=== PATIENT | male | born 1980 | race African-American/Black ===

== ENCOUNTER 2016-05-02 17:18 | Emergency (ER) | payer OTHER ==
[2016-05-02 17:22] VITALS: BMI 21.7
[2016-05-02] MEDS ORDERED: SODIUM CHLORIDE 1,000 ML IV STA (17:50)
--- NOTE | 2016-05-02 17:50 | PDOC ---
History of Present Illness - General History Source: Patient, Old Records Exam Limitations: No Limitations <Abby Johnson - Last Filed: 05/02/16 18:26> - History of Present Illness Initial Comments: 05/02/16 17:50 Patient is a 35 year old male with significant medical hx of MS and sickle cell anemia s/p blood transfusions x 2 who is presenting to the ED with intermittent lower back pain and lower extremity pain for two days. The patient describes his pain as sharp and stabbing. His pain is localized to his thighs and radiates downwards to his feet. Patient is prescribed to take oxycodone (30mg) 8x per day, however, the patient states he does not have access to his medication at this time because he is here visiting his children and left it home in [place]. The patient has taken a few doses over the past few days with minimal relief. The patient also complains of generalized abdominal pain and chills. Denies fever, chest pain, shortness of breath, nausea, vomiting, and diarrhea. 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 NKDA. <Maylin Holloway - Last Filed: 05/02/16 18:28> <Tamera Gerber - Last Filed: 05/03/16 03:57> - General Chief Complaint: Weakness Stated Complaint: WEAKNESS Time Seen by Provider: 05/02/16 17:32 Past History - Past Medical History Anemia: Yes (SICKLE CELL ANEMIA) Other medical history: MS - Immunization History Immunization Up to Date: Yes - Psycho/Social/Smoking Cessation Hx Anxiety: No Suicidal Ideation: No Smoking History: Current every day smoker Have you smoked in the past 12 months: Yes Number of Cigarettes Smoked Daily: 4 Cigars Per Day: 3 Information on smoking cessation initiated: Yes 'Breaking Loose' booklet given: 05/02/16 Hx Alcohol Use: Yes (occasional) Drug/Substance Use Hx: Yes (marijuana) Substance Use Type: Alcohol Hx Substance Use Treatment: No <Abby Johnson - Last Filed: 05/02/16 18:26> <Maylin Holloway - Last Filed: 05/02/16 18:28> <Tamera Gerber - Last Filed: 05/03/16 03:57> - Past Medical History Allergies/Adverse Reactions: Allergies Allergy/AdvReac Type Severity Reaction Status Date / Time No Known Allergies Allergy Verified 03/19/16 21:14 Home Medications: Ambulatory Orders Hydromorphone HCl [Dilaudid] 2 mg PO TID PRN 05/02/16 Oxycodone HCl [Oxycodone HCl ER] 30 mg PO Q8H PRN 05/02/16 Review of Systems - Review of Systems Comments:: 05/02/16 17:52 GENERAL/CONSTITUTIONAL: Chills. No fever. No weakness. HEAD, EYES, EARS, NOSE AND THROAT: No change in vision. No ear pain or discharge. No sore throat. CARDIOVASCULAR: No chest pain or shortness of breath. RESPIRATORY: No cough, wheezing, or hemoptysis. GASTROINTESTINAL: Generalized abdominal pain. No nausea, vomiting, diarrhea or constipation. GENITOURINARY: No dysuria, frequency, or change in urination. MUSCULOSKELETAL: Lower back pain, lower extremity pain. No joint or muscle swelling. No neck pain. SKIN: No rash NEUROLOGIC: No headache, vertigo, loss of consciousness, or change in strength/ sensation. <Maylin Holloway - Last Filed: 05/02/16 18:28> *Physical Exam - Vital Signs Last Vital Signs Temp Pulse Resp BP Pulse Ox 98 F 92 H 18 130/69 97 05/02/16 17:20 05/02/16 17:20 05/02/16 17:20 05/02/16 17:20 05/02/16 17:20 <Abby Johnson - Last Filed: 05/02/16 18:26> - Vital Signs Last Vital Signs Temp Pulse Resp BP Pulse Ox 98 F 92 H 18 130/69 97 05/02/16 17:20 05/02/16 17:20 05/02/16 17:20 05/02/16 17:20 05/02/16 17:20 - Physical Exam Comments: 05/02/16 17:53 GENERAL: Awake, alert, and fully oriented, in no acute distress HEAD: No signs of trauma EYES: PERRLA, EOMI, sclera anicteric, conjunctiva clear ENT: Auricles normal inspection, hearing grossly normal, nares patent, oropharynx clear without exudates. Moist mucosa NECK: Normal ROM, supple, no lymphadenopathy, JVD, or masses LUNGS: Breath sounds equal, clear to auscultation bilaterally. No wheezes, and no crackles HEART: Regular rate and rhythm, normal S1 and S2, no murmurs, rubs or gallops ABDOMEN: Soft, nontender, normoactive bowel sounds. No guarding, no rebound. No masses EXTREMITIES: Normal range of motion, no edema. No clubbing or cyanosis. No cords, erythema, or tenderness NEUROLOGICAL: Cranial nerves II through XII grossly intact. Normal speech, normal gait SKIN: Warm, Dry, normal turgor, no rashes or lesions noted. ENDOCRINE: No abnormal weight change. HEMATOLOGIC/LYMPHATIC: No anemia, easy bleeding, or history of blood clots. ALLERGIC/IMMUNOLOGIC: No hives or skin allergy. <Maylin Holloway - Last Filed: 05/02/16 18:28> - Vital Signs Last Vital Signs Temp Pulse Resp BP Pulse Ox 98 F 92 H 18 130/69 97 05/02/16 17:20 05/02/16 17:20 05/02/16 17:20 05/02/16 17:20 05/02/16 17:20 <Tamera Gerber - Last Filed: 05/03/16 03:57> ED Treatment Course - LABORATORY CBC & Chemistry Diagram: 05/02/16 18:20 05/02/16 18:20 - ADDITIONAL ORDERS Additional order review: Laboratory Results 05/02/16 05/02/16 19:00 18:20 Sodium 141 Potassium 3.9 Chloride 107 Carbon Dioxide 27 Anion Gap 7 L BUN 11 Creatinine 0.7 D Creat Clearance w eGFR > 60 Random Glucose 86 Calcium 9.1 Total Bilirubin 1.2 H D AST 56 H D ALT 51 D Alkaline Phosphatase 115 Total Protein 6.8 Albumin 3.7 Urine Color Yellow Urine Appearance Clear Urine pH 7.0 D Ur Specific [place] 1.013 Urine Protein Negative Urine Glucose (UA) Negative Urine Ketones Negative Urine Blood Negative Urine Nitrite Negative Urine Bilirubin Negative Urine Urobilinogen 2.0 e.u/dl Ur Leukocyte Esterase Negative 05/02/16 18:20 RBC 4.12 MCV 65.3 L MCHC 33.9 RDW 19.6 H D MPV 9.4 D Neutrophils % 71.5 Lymphocytes % 13.9 D Monocytes % 12.6 H D Eosinophils % 1.3 D Basophils % 0.7 - Medications Given in the ED: ED Medications Discontinued Medications Generic Name Dose Route Start Last Admin Trade Name Weslyq PRN Reason Stop Dose Admin Sodium Chloride 1,000 mls @ 1,000 mls/hr 05/02/16 17:50 05/02/16 18:25 Normal Saline - IV 05/02/16 18:49 1,000 mls/hr ASDIR STA Administration Oxycodone HCl 30 mg 05/02/16 17:51 05/02/16 18:26 Roxicodone - PO 05/02/16 17:52 30 mg ONCE ONE Administration <Tamera Gerber - Last Filed: 05/03/16 03:57> Medical Decision Making - Medical Decision Making 05/02/16 18:26 35-year-old male with history of sickle cell disease and multiple sclerosis who presents to the emergency Department with complaints of 2 day history of bilateral thigh pain similar to prior episodes of sickle cell pain crisis. Differential diagnosis includes but is not limited to: Sickle cell pain crisis, dehydration, anemia, electrolyte abnormality, toxic/metabolic derangement. Plan: 1. Labs 2. IV fluids for hydration 3. Pain management 4. Observe and reevaluate <Abby Johnson - Last Filed: 05/02/16 18:26> - Medical Decision Making 05/03/16 03:57 I received patient on signout. He required no further pain meds. He will follow with his PMD. <Tamera Gerber - Last Filed: 05/03/16 03:57> *DC/Admit/Observation/Transfer - Attestations Physician Attestion: 05/02/16 18:28 I, Dr. Abby Johnson, attest that the scribes documentation that appears above has been prepared under my direction and personally reviewed by me in its entirety. I confirmed that the note above accurately reflects all work, treatment, procedures, and medical decision-making performed by me. <Abby Johnson - Last Filed: 05/02/16 18:26> - Attestations Scribe Attestion: 05/02/16 17:54 Documentation prepared by Maylin Holloway, acting as medical lab assistant for Abby Johnson MD. <Maylin Holloway - Last Filed: 05/02/16 18:28> - Discharge Dispostion Admit: No <Tamera Gerber - Last Filed: 05/03/16 03:57> Diagnosis at time of Disposition: Sickle cell crisis - Discharge Dispostion Disposition: HOME Condition at time of disposition: Improved - Patient Instructions Printed Discharge Instructions: Sickle Cell Disease (Alternative Therapy), DI for Sickle Cell Anemia, Pain Crisis -- Adult
[2016-05-02] MEDS ORDERED: oxyCODONE HCL 5 MG TABLET PO ONE (17:51)
[2016-05-02] MEDS ORDERED: oxyCODONE HCL 5 MG TABLET ONE (18:21)
[2016-05-02 18:48] LABS: BASOPHIL 0.7 % (0-2.0); EOSINOPHIL 1.3 % (0-4.5); MCH 22.1 pg (25.7-33.7); MCHC 33.9 g/dl (32.0-35.9); MEAN CELL VOLUME 65.3 fl (80-96); MEAN PLT VOLUME 9.4 fl (7.5-11.1); NEUTROPHILS 71.5 % (42.8-82.8); PLATELET COUNT 264 K/MM3 (134-434); RDW 19.6 % (11.9-15.9); WHITE BLOOD COUNT 11.3 K/mm3 (4.0-10.0)
[2016-05-02 19:00] LABS: ALBUMIN 3.7 g/dl (3.4-5.0); ALK PHOS 115 U/L (45-117); ANION GAP 7 (8-16); BILIRUBIN,TOTAL 1.2 mg/dL (0.2-1.0); CALCIUM 9.1 mg/dL (8.5-10.1); CO2 27 mmol/L (21-32); CREATININE 0.7 mg/dL (0.7-1.3); GLUCOSE,RANDOM 86 mg/dL (74-106); SGOT/AST 56 U/L (15-37); SGPT/ALT 51 U/L (12-78); TOT PROT 6.8 g/dl (6.4-8.2)
[2016-05-02 19:17] LABS: URINE APPEARANCE CLEAR; URINE BILIRUBIN NEGATIVE (NEGATIVE); URINE BLOOD NEGATIVE (NEGATIVE); URINE COLOR YELLOW; URINE GLUCOSE (UA) NEGATIVE (NEGATIVE); URINE KETONE NEGATIVE (NEGATIVE); URINE LEUK ESTERASE NEGATIVE (NEGATIVE); URINE NITRITE NEGATIVE (NEGATIVE); URINE PROTEIN NEGATIVE (NEGATIVE); URINE UROBILINOGEN 2.0 E.U/dl E.U./dl (0.2-1.0)
[2016-05-02 19:47] LABS: PLATELET ESTIMATE ADEQUATE (NORMAL)
[2016-05-02 19:48] LABS: ANISOCYTOSIS 1+; HYPOCHROMIA 1+; MICROCYTOSIS 1+; POIKILOCYTOSIS 2+; POLYCHROMASIA 1+
[2016-05-02 19:49] LABS: OVALOCYTES 1+; TARGET CELLS 2+
[2016-05-02 21:37] VITALS: BP 132/78; PULSE 88; TEMP 98.3
== END 2016-05-02 21:26 | disposition home or self-care (01) ==
LOC: JER 17:18
PROC: 3E0337Z Introduction of Electrolytic and Water Balance Substance into Peripheral Vein, Percutaneous Approach (ICD-10-PCS; principal; 2016-05-02)
DX: D57.00 Hb-SS disease with crisis, unspecified (principal); R53.1 Weakness; F17.210 Nicotine dependence, cigarettes, uncomplicated
CPT/HCPCS: 36415; 71010-TC; 80053; 81003; 85025; 85044; 96360; 99284-25

== ENCOUNTER 2017-01-18 15:32 | Emergency (ER) | payer OTHER ==
[2017-01-18 15:41] VITALS: BP 117/73; PULSE 101; TEMP 98.9; BMI 21.4
--- NOTE | 2017-01-18 17:35 | PDOC ---
History of Present Illness - General History Source: Patient Exam Limitations: No Limitations - History of Present Illness Initial Comments: 01/18/17 18:06 The patient is a 36 year old male with a significant PMH of multiple sclerosis and sickle cell anemia who presents to the emergency department with flu-like symptoms beginning approximately 2 days ago. The patient states that he has been feeling weak and fatigued with sneezing and congestion. He notes associated cough and sore throat. The patient also reports a mass in his right armpit that he has had for years which he is concerned about. The patient denies chest pain, shortness of breath, headache and dizziness. Denies nausea, vomit, diarrhea and constipation. Allergies: NKA Social history: Everyday smoker. No reported alcohol or drug use. <Levar Villalba - Last Filed: 01/18/17 20:00> - General History Source: Patient Exam Limitations: No Limitations - History of Present Illness Severity: moderate Associated Symptoms: reports: fever/chills, weakness. denies: headaches, loss of appetite, malaise, nausea/vomiting, rash, shortness of breath, syncope <Claudia Lynn - Last Filed: 01/18/17 23:39> - General Chief Complaint: Respiratory Stated Complaint: COLD, ABSCESS IN RT AXILLA Time Seen by Provider: 01/18/17 17:06 Past History <Levar Villalba - Last Filed: 01/18/17 20:00> - Past Medical History Anemia: Yes (SICKLE CELL ANEMIA) Other medical history: MS - Immunization History Immunization Up to Date: Yes - Suicide/Smoking/Psychosocial Hx Smoking History: Current every day smoker Have you smoked in the past 12 months: Yes Number of Cigarettes Smoked Daily: 4 Cigars Per Day: 3 Information on smoking cessation initiated: No 'Breaking Loose' booklet given: 05/02/16 Hx Alcohol Use: No Drug/Substance Use Hx: No Substance Use Type: None Hx Substance Use Treatment: No <Claudia Lynn - Last Filed: 01/18/17 23:39> - Past Medical History Allergies/Adverse Reactions: Allergies Allergy/AdvReac Type Severity Reaction Status Date / Time No Known Allergies Allergy Verified 01/18/17 15:42 Home Medications: Ambulatory Orders Hydromorphone HCl [Dilaudid] 2 mg PO TID PRN 05/02/16 Oxycodone HCl [Oxycodone HCl ER] 30 mg PO Q8H PRN 05/02/16 Review of Systems - Review of Systems Able to Perform ROS?: Yes Comments:: 01/18/17 18:06 GENERAL/CONSTITUTIONAL: (+) Subjective fever. (+) Generalized weakness. No chills. HEAD, EYES, EARS, NOSE AND THROAT: (+) Sore throat. No change in vision. No ear pain or discharge. CARDIOVASCULAR: No chest pain or shortness of breath. RESPIRATORY: (+) Cough. No wheezing or hemoptysis. GASTROINTESTINAL: No nausea, vomiting, diarrhea or constipation. MUSCULOSKELETAL: No joint or muscle swelling or pain. No neck or back pain. NEUROLOGIC: No headache, vertigo, loss of consciousness. <Levar Villalba - Last Filed: 01/18/17 20:00> *Physical Exam - Vital Signs Last Vital Signs Temp Pulse Resp BP Pulse Ox 98.9 F 101 H 18 117/73 95 01/18/17 15:38 01/18/17 15:38 01/18/17 15:38 01/18/17 15:38 01/18/17 15:38 - Physical Exam Comments: 01/18/17 18:06 GENERAL: Awake, alert, and fully oriented, in no acute distress EYES: PERRLA, EOMI, sclera anicteric, conjunctiva clear ENT: Auricles normal inspection, hearing grossly normal, nares patent, oropharynx clear without exudates. Moist mucosa LUNGS: Breath sounds equal, clear to auscultation bilaterally. No wheezes, and no crackles HEART: Regular rate and rhythm, normal S1 and S2, no murmurs, rubs or gallops ABDOMEN: Soft, nontender, normoactive bowel sounds. No guarding, no rebound. No masses EXTREMITIES: (+) 2 cm palpable mobile mass to right axilla. No palpable lymph node. No surrounding erythema, edema, or fluctuants. Area is hard, small opening to middle with no drainage. Consistent with opened hair follicle, no evidence of cellulitis. Normal range of motion, no edema. No clubbing or cyanosis. No cords or tenderness NEUROLOGICAL: Cranial nerves II through XII grossly intact. Normal speech. <Levar Villalba - Last Filed: 01/18/17 20:00> - Vital Signs Last Vital Signs Temp Pulse Resp BP Pulse Ox 98.9 F 101 H 18 117/73 95 01/18/17 15:38 01/18/17 15:38 01/18/17 15:38 01/18/17 15:38 01/18/17 15:38 <Claudia Lynn - Last Filed: 01/18/17 23:39> Medical Decision Making - Medical Decision Making 01/18/17 18:29 A/P: Patient here for evaluation of cough and cold-like symptoms, states he thinks he has the flu son with similar symptoms patient also requesting evaluation of palpable mobile nonpainful mass to right axilla, patient states he has had for several years. Concerned because there is mild tenderness to area. Patient denies any increased weakness consistent with MS exacerbation and denies any pain consistent with sickle cell crisis A portion of this note was documented by the scribe services under my direction. I reviewed the details of the note within reason, and agree with the documentation with the following case summary and management plan written by me. Plan: Rapid influenza sent 01/18/17 19:50 Rapid influenza is negative, since physical examination is benign does not complain of any pain. We'll discharge patient home, supportive care, increase fluids. If symptoms persist tomorrow follow-up with primary care doctor I discussed the physical exam findings, ancillary test results and final diagnoses with the patient. I answered all of the patient's questions. The patient was satisfied with the care received and felt comfortable with the discharge plan and treatment plan. The patient will call to arrange follow-up and will return to the Emergency Department with any new, persistent or worsening symptoms. 01/18/17 23:39 <Claudia Lynn - Last Filed: 01/18/17 23:39> *DC/Admit/Observation/Transfer - Attestations Scribe Attestion: 01/18/17 18:06 Documentation prepared by Levar Villalba, acting as resident medical officer for Claudia Lynn FNP. <Levar Villalba - Last Filed: 01/18/17 20:00> - Discharge Dispostion Admit: No <Claudia Lynn - Last Filed: 01/18/17 23:39> Diagnosis at time of Disposition: Flu-like symptoms - Discharge Dispostion Disposition: HOME Condition at time of disposition: Good - Referrals Referrals: Renetta Laureano MD [Primary Care Provider] - - Patient Instructions Additional Instructions: Increase fluids to prevent dehydration Motrin for fever greater than 101.0 Please followup with primary care DrCarloz in 3 days if symptoms persist Return to emergency department any increased cough, fever, inability to drink or other concerns
== END 2017-01-18 19:58 | disposition home or self-care (01) ==
LOC: JERFT 15:32
DX: J11.1 Influenza due to unidentified influenza virus with other respiratory manifestations (principal); L02.411 Cutaneous abscess of right axilla; D57.1 Sickle-cell disease without crisis; G35 Multiple sclerosis; F17.210 Nicotine dependence, cigarettes, uncomplicated
CPT/HCPCS: 87804; 99281-25

== ENCOUNTER 2021-02-19 00:41 | Inpatient (IN) | payer OTHER ==
[2021-02-19 00:51] VITALS: BMI 21.4
[2021-02-19] MEDS ORDERED: HYDROmorphone HCL CARPU-JECT 2 MG/1 ML DISP.SYRIN IVPB ONE ×2 (01:15→01:18)
[2021-02-19] MEDS ORDERED: LACTATED RINGERS SOLUTION 1,000 ML/1,000 ML INFUS.BAG IV STA (01:16)
[2021-02-19] MEDS ORDERED: HYDROmorphone HCl 2 MG/ML VIAL ONE ×3 (01:20→06:15)
[2021-02-19 01:41] LABS: BASO % 1.1 % (0-2.0); EOS % 3.3 % (0-4.5); HEMATOCRIT 25.5 % (35.4-49); HEMOGLOBIN 8.7 GM/dL (11.7-16.9); LYMPH % 25.8 % (8-40); MCH 23.2 pg (25.7-33.7); MEAN CELL VOLUME 68.2 fl (80-96); MEAN PLT VOLUME 8.9 fl (7.5-11.1); MONO % 10.5 % (3.8-10.2); NEUT % 59.3 % (42.8-82.8); PLATELET COUNT 287 10^3/uL (134-434); RBC 3.74 M/mm3 (4.00-5.60); RDW 17.7 % (11.9-15.9); WHITE BLOOD COUNT 10.6 K/mm3 (4.0-10.0)
[2021-02-19 01:46] LABS: RETICULOCYTES 4.48 % (0.5-1.5)
[2021-02-19] MEDS ORDERED: HYDROmorphone HCL CARPU-JECT 2 MG/1 ML DISP.SYRIN IVPUSH ONE (02:27)
[2021-02-19 03:00] LABS: ALBUMIN 3.6 g/dl (3.4-5.0); BILIRUBIN,TOTAL 1.1 mg/dL (0.2-1); BLOOD UREA NITROGEN 10.7 mg/dL (7-18); CALCIUM 8.3 mg/dL (8.5-10.1); CREATININE 0.9 mg/dL (0.55-1.3); TOT PROT 6.7 g/dl (6.4-8.2)
[2021-02-19] MEDS: SODIUM CHLORIDE 0.45% 1,000 ML IV SCH ×2 (06:29→17:41)
[2021-02-19] MEDS: HYDROmorphone HCl 2 MG/ML VIAL IVPUSH PRN ×2 (06:29→10:27)
[2021-02-19] MEDS: MAGNESIUM OXIDE 400 MG TABLET (FP) PO SCH (10:58)
[2021-02-19 12:08] LABS: LDH 395 U/L (87-246)
[2021-02-19 12:22] LABS: BASO % 0.9 % (0-2.0); HEMATOCRIT 25.7 % (35.4-49); HEMOGLOBIN 8.5 GM/dL (11.7-16.9); LYMPH % 20.4 % (8-40); MCH 22.8 pg (25.7-33.7); MCHC 33.2 g/dl (32.0-35.9); MEAN CELL VOLUME 68.5 fl (80-96); MEAN PLT VOLUME 8.9 fl (7.5-11.1); MONO % 9.8 % (3.8-10.2); NEUT % 65.9 % (42.8-82.8); PLATELET COUNT 294 10^3/uL (134-434); RBC 3.74 M/mm3 (4.00-5.60); RDW 18.2 % (11.9-15.9); WHITE BLOOD COUNT 11.5 K/mm3 (4.0-10.0)
[2021-02-19] MEDS ORDERED: OXYCODONE HCL 5 MG PO PRN (13:16)
[2021-02-19] MEDS ORDERED: PT OWN MED DRAWER 7, Y5N ONE ×2 (15:37→21:53)
[2021-02-19] MEDS: HYDROmorphone HCl 2 MG/ML VIAL IVPB PRN ×2 (15:40→22:54)
[2021-02-19] MEDS: CHOLECALCIFEROL (VIT D3) 5000 UNITS (125 MCG) CAP PO SCH (15:41)
[2021-02-19] MEDS: FOLIC ACID 1 MG TABLET (FP) PO SCH (15:43)
[2021-02-19] MEDS: oxyCODONE HCL 5 MG TABLET PO PRN (17:36)
[2021-02-19] MEDS ORDERED: AMITRIPTYLINE HCL 50 MG TABLET PO SCH (22:00)
[2021-02-19] MEDS: AMITRIPTYLINE HCL 25 MG TABLET PO SCH (22:19)
[2021-02-20] MEDS: oxyCODONE HCL 5 MG TABLET PO PRN ×4 (02:08→20:33)
[2021-02-20] MEDS: HYDROmorphone HCl 2 MG/ML VIAL IVPB PRN ×4 (03:25→22:12)
[2021-02-20] MEDS: SODIUM CHLORIDE 0.45% 1,000 ML IV SCH ×3 (08:16→20:36)
[2021-02-20 08:49] LABS: BASO % 0.7 % (0-2.0); EOS % 1.6 % (0-4.5); HEMATOCRIT 27.4 % (35.4-49); HEMOGLOBIN 9.3 GM/dL (11.7-16.9); LYMPH % 9.7 % (8-40); MCH 23.1 pg (25.7-33.7); MCHC 33.9 g/dl (32.0-35.9); MEAN CELL VOLUME 68.1 fl (80-96); MEAN PLT VOLUME 8.3 fl (7.5-11.1); MONO % 11.5 % (3.8-10.2); NEUT % 76.5 % (42.8-82.8); PLATELET COUNT 272 10^3/uL (134-434); RBC 4.03 M/mm3 (4.00-5.60); RDW 17.9 % (11.9-15.9)
[2021-02-20 08:51] LABS: INR 1.28 (0.83-1.09); PROTHROMBIN TIME (PATIENT) 14.4 SEC (9.7-13.0)
[2021-02-20] MEDS: NICOTINE 14 MG/24 HOURS TOPICAL PATCH TD SCH (09:42)
[2021-02-20] MEDS: ENOXAPARIN NA (PORCINE) 40 MG/0.4 ML DISP.SYRIN SQ SCH (09:42)
[2021-02-20] MEDS: FOLIC ACID 1 MG TABLET (FP) PO SCH (09:42)
[2021-02-20] MEDS: CHOLECALCIFEROL (VIT D3) 5000 UNITS (125 MCG) CAP PO SCH (09:42)
[2021-02-20] MEDS: MAGNESIUM OXIDE 400 MG TABLET (FP) PO SCH (09:42)
[2021-02-20] MEDS ORDERED: DIMETHYL FUMARATE PO SCH (10:00)
[2021-02-20 10:03] LABS: ALBUMIN 3.8 g/dl (3.4-5.0); BILIRUBIN,TOTAL 1.6 mg/dL (0.2-1); BLOOD UREA NITROGEN 8.4 mg/dL (7-18); CALCIUM 8.6 mg/dL (8.5-10.1); CREATININE 0.8 mg/dL (0.55-1.3)
[2021-02-20 15:32] LABS: EPI CELLS 3 /uL (0-25.1); HYALINE CASTS 0 /uL (0-3.1); URINE APPEARANCE CLEAR; URINE BACTERIA 8 /uL (0-1359); URINE BILIRUBIN NEGATIVE (NEGATIVE); URINE COLOR YELLOW; URINE GLUCOSE (UA) NEGATIVE (NEGATIVE); URINE KETONE NEGATIVE (NEGATIVE); URINE LEUK ESTERASE TRACE (NEGATIVE); URINE NITRITE NEGATIVE (NEGATIVE); URINE PROTEIN NEGATIVE (NEGATIVE); URINE RBC 1 /uL (0-23.9); URINE UROBILINOGEN 0.2 mg/dL (0.2-1.0); URINE WBC 26 /uL (0-25.8)
[2021-02-20] MEDS ORDERED: AMITRIPTYLINE HCL 25 MG TABLET PO SCH (22:00)
[2021-02-20] MEDS: AMITRIPTYLINE HCL 25 MG TABLET PO SCH (22:17)
[2021-02-21] MEDS: oxyCODONE HCL 5 MG TABLET PO PRN ×3 (02:41→17:30)
[2021-02-21] MEDS: HYDROmorphone HCl 2 MG/ML VIAL IVPB PRN ×4 (05:30→23:08)
[2021-02-21] MEDS: SODIUM CHLORIDE 0.45% 1,000 ML IV SCH ×2 (05:33→17:31)
[2021-02-21 08:26] LABS: BASO % 0.8 % (0-2.0); HEMATOCRIT 26.9 % (35.4-49); HEMOGLOBIN 9.1 GM/dL (11.7-16.9); LYMPH % 9.8 % (8-40); MCH 22.8 pg (25.7-33.7); MCHC 33.8 g/dl (32.0-35.9); MEAN CELL VOLUME 67.6 fl (80-96); MONO % 10.3 % (3.8-10.2); NEUT % 78.1 % (42.8-82.8); PLATELET COUNT 249 10^3/uL (134-434); RBC 3.98 M/mm3 (4.00-5.60); WHITE BLOOD COUNT 13.8 K/mm3 (4.0-10.0)
[2021-02-21] MEDS ORDERED: PT OWN MED DRAWER 7, Y5N ONE ×2 (09:06→16:04)
[2021-02-21] MEDS: ENOXAPARIN NA (PORCINE) 40 MG/0.4 ML DISP.SYRIN SQ SCH (09:08)
[2021-02-21] MEDS: NICOTINE 14 MG/24 HOURS TOPICAL PATCH TD SCH (09:08)
[2021-02-21] MEDS: MAGNESIUM OXIDE 400 MG TABLET (FP) PO SCH (09:08)
[2021-02-21] MEDS: CHOLECALCIFEROL (VIT D3) 5000 UNITS (125 MCG) CAP PO SCH (09:08)
[2021-02-21] MEDS: FOLIC ACID 1 MG TABLET (FP) PO SCH (09:08)
[2021-02-21 09:55] LABS: ALBUMIN 3.8 g/dl (3.4-5.0); BILIRUBIN,TOTAL 1.9 mg/dL (0.2-1); CALCIUM 8.9 mg/dL (8.5-10.1); CREATININE 0.8 mg/dL (0.55-1.3); TOT PROT 7.3 g/dl (6.4-8.2)
[2021-02-21] MEDS ORDERED: CEFTRIAXONE 1 GM in DEXTROSE 5%-WATER - 50 ML IVPB SCH (10:15)
[2021-02-21] MEDS ORDERED: DEXTROSE 5%-WATER - 50 ML IVPB ONE (12:13)
[2021-02-21] MEDS ORDERED: cefTRIAXone SODIUM 1 GM VIAL ONE (12:13)
[2021-02-21 15:02] LABS: RETICULOCYTES 2.71 % (0.5-1.5)
[2021-02-21 15:52] LABS: MAGNESIUM 2.1 mg/dL (1.8-2.4); PHOSPHOROUS 3.4 mg/dL (2.5-4.9)
[2021-02-21] MEDS: AMITRIPTYLINE HCL 25 MG TABLET PO SCH (22:10)
[2021-02-22] MEDS: oxyCODONE HCL 5 MG TABLET PO PRN ×3 (00:30→20:48)
[2021-02-22 08:20] LABS: BASO % 0.8 % (0-2.0); EOS % 2.1 % (0-4.5); HEMATOCRIT 26.6 % (35.4-49); HEMOGLOBIN 8.9 GM/dL (11.7-16.9); MCH 22.7 pg (25.7-33.7); MCHC 33.6 g/dl (32.0-35.9); MEAN CELL VOLUME 67.4 fl (80-96); MEAN PLT VOLUME 8.9 fl (7.5-11.1); MONO % 11.9 % (3.8-10.2); NEUT % 70.2 % (42.8-82.8); PLATELET COUNT 245 10^3/uL (134-434); RBC 3.95 M/mm3 (4.00-5.60); RDW 18.1 % (11.9-15.9)
[2021-02-22 08:59] LABS: CALCIUM 8.8 mg/dL (8.5-10.1)
[2021-02-22 09:00] LABS: ALBUMIN 3.4 g/dl (3.4-5.0); BLOOD UREA NITROGEN 13.7 mg/dL (7-18)
[2021-02-22 09:03] LABS: CREATININE 0.8 mg/dL (0.55-1.3)
[2021-02-22 09:04] LABS: BILIRUBIN,TOTAL 2.4 mg/dL (0.2-1); TOT PROT 6.9 g/dl (6.4-8.2)
[2021-02-22] MEDS ORDERED: PT OWN MED DRAWER 7, Y5N ONE (09:09)
[2021-02-22] MEDS: MAGNESIUM OXIDE 400 MG TABLET (FP) PO SCH (09:15)
[2021-02-22] MEDS: HYDROmorphone HCl 2 MG/ML VIAL IVPB PRN ×3 (09:15→23:08)
[2021-02-22] MEDS: FOLIC ACID 1 MG TABLET (FP) PO SCH (09:15)
[2021-02-22] MEDS: NICOTINE 14 MG/24 HOURS TOPICAL PATCH TD SCH (09:15)
[2021-02-22] MEDS: ENOXAPARIN NA (PORCINE) 40 MG/0.4 ML DISP.SYRIN SQ SCH (09:15)
[2021-02-22] MEDS: CHOLECALCIFEROL (VIT D3) 5000 UNITS (125 MCG) CAP PO SCH (09:15)
[2021-02-22] MEDS: SODIUM CHLORIDE 0.45% 1,000 ML IV SCH (12:31)
[2021-02-22] MEDS: AMOX TR/POT CLAV 500MG/125MG TABLETS (FP) PO SCH (17:07)
[2021-02-22] MEDS: AMITRIPTYLINE HCL 25 MG TABLET PO SCH (21:24)
[2021-02-23] MEDS: oxyCODONE HCL 5 MG TABLET PO PRN ×3 (03:09→17:02)
[2021-02-23] MEDS: SODIUM CHLORIDE 0.45% 1,000 ML IV SCH ×2 (03:15→17:01)
[2021-02-23] MEDS: NICOTINE 14 MG/24 HOURS TOPICAL PATCH TD SCH (09:02)
[2021-02-23] MEDS: ENOXAPARIN NA (PORCINE) 40 MG/0.4 ML DISP.SYRIN SQ SCH (09:02)
[2021-02-23] MEDS: FOLIC ACID 1 MG TABLET (FP) PO SCH (09:03)
[2021-02-23] MEDS: CHOLECALCIFEROL (VIT D3) 5000 UNITS (125 MCG) CAP PO SCH (09:03)
[2021-02-23] MEDS: MAGNESIUM OXIDE 400 MG TABLET (FP) PO SCH (09:03)
[2021-02-23] MEDS: AMOX TR/POT CLAV 500MG/125MG TABLETS (FP) PO SCH ×2 (09:03→17:01)
[2021-02-23] MEDS: HYDROmorphone HCl 2 MG/ML VIAL IVPB PRN ×2 (13:30→21:38)
[2021-02-23] MEDS: AMITRIPTYLINE HCL 25 MG TABLET PO SCH (21:37)
[2021-02-24] MEDS: oxyCODONE HCL 5 MG TABLET PO PRN ×4 (03:08→22:28)
[2021-02-24] MEDS: SODIUM CHLORIDE 0.45% 1,000 ML IV SCH ×3 (05:09→18:13)
[2021-02-24 08:55] LABS: BASO % 0.9 % (0-2.0); EOS % 2.6 % (0-4.5); HEMATOCRIT 22.9 % (35.4-49); HEMOGLOBIN 8.1 GM/dL (11.7-16.9); LYMPH % 14.6 % (8-40); MCH 22.9 pg (25.7-33.7); MCHC 35.3 g/dl (32.0-35.9); MONO % 13.7 % (3.8-10.2); NEUT % 68.2 % (42.8-82.8); PLATELET COUNT 195 10^3/uL (134-434); RBC 3.52 M/mm3 (4.00-5.60); RDW 18.8 % (11.9-15.9); WHITE BLOOD COUNT 12.6 K/mm3 (4.0-10.0)
[2021-02-24 09:12] LABS: CALCIUM 8.6 mg/dL (8.5-10.1)
[2021-02-24 09:13] LABS: ALBUMIN 3.2 g/dl (3.4-5.0); BLOOD UREA NITROGEN 13.8 mg/dL (7-18)
[2021-02-24 09:16] LABS: CREATININE 0.8 mg/dL (0.55-1.3)
[2021-02-24 09:17] LABS: BILIRUBIN,TOTAL 1.8 mg/dL (0.2-1); TOT PROT 6.6 g/dl (6.4-8.2)
[2021-02-24] MEDS: MAGNESIUM OXIDE 400 MG TABLET (FP) PO SCH (10:54)
[2021-02-24] MEDS: AMOX TR/POT CLAV 500MG/125MG TABLETS (FP) PO SCH (10:55)
[2021-02-24] MEDS: ENOXAPARIN NA (PORCINE) 40 MG/0.4 ML DISP.SYRIN SQ SCH (10:55)
[2021-02-24] MEDS: NICOTINE 14 MG/24 HOURS TOPICAL PATCH TD SCH (10:56)
[2021-02-24] MEDS: FOLIC ACID 1 MG TABLET (FP) PO SCH (10:56)
[2021-02-24] MEDS: CHOLECALCIFEROL (VIT D3) 5000 UNITS (125 MCG) CAP PO SCH (10:57)
[2021-02-24 11:40] LABS: ANISOCYTOSIS 1+; MACROCYTOSIS 0; OVALOCYTE 1+; PLATELET ESTIMATE NORMAL; TARGET CELLS 2+; TEAR DROP CELLS 1+
[2021-02-24] MEDS: HYDROmorphone HCl 2 MG/ML VIAL IVPB PRN (20:19)
[2021-02-24] MEDS: AMITRIPTYLINE HCL 25 MG TABLET PO SCH (21:04)
[2021-02-25] MEDS: oxyCODONE HCL 5 MG TABLET PO PRN ×3 (04:33→17:28)
[2021-02-25] MEDS: HYDROmorphone HCl 2 MG/ML VIAL IVPB PRN ×2 (08:34→20:41)
[2021-02-25] MEDS: SODIUM CHLORIDE 0.45% 1,000 ML IV SCH ×2 (09:11→18:58)
[2021-02-25 09:13] LABS: BASO % 0.6 % (0-2.0); EOS % 1.9 % (0-4.5); HEMATOCRIT 22.7 % (35.4-49); LYMPH % 15.8 % (8-40); MCH 22.7 pg (25.7-33.7); MCHC 35.2 g/dl (32.0-35.9); MEAN CELL VOLUME 64.4 fl (80-96); MEAN PLT VOLUME 9.2 fl (7.5-11.1); MONO % 11.7 % (3.8-10.2); PLATELET COUNT 237 10^3/uL (134-434); RBC 3.52 M/mm3 (4.00-5.60); RDW 20.9 % (11.9-15.9); WHITE BLOOD COUNT 13.3 K/mm3 (4.0-10.0)
[2021-02-25] MEDS: FOLIC ACID 1 MG TABLET (FP) PO SCH (09:13)
[2021-02-25] MEDS: MAGNESIUM OXIDE 400 MG TABLET (FP) PO SCH (09:13)
[2021-02-25] MEDS: ENOXAPARIN NA (PORCINE) 40 MG/0.4 ML DISP.SYRIN SQ SCH (09:13)
[2021-02-25] MEDS: NICOTINE 14 MG/24 HOURS TOPICAL PATCH TD SCH (09:13)
[2021-02-25] MEDS ORDERED: PT OWN MED DRAWER 7, Y5N ONE (09:14)
[2021-02-25] MEDS: CHOLECALCIFEROL (VIT D3) 5000 UNITS (125 MCG) CAP PO SCH (09:15)
[2021-02-25 09:40] LABS: CALCIUM 8.6 mg/dL (8.5-10.1)
[2021-02-25 09:43] LABS: ALBUMIN 3.3 g/dl (3.4-5.0)
[2021-02-25 09:44] LABS: BLOOD UREA NITROGEN 12.8 mg/dL (7-18)
[2021-02-25 09:46] LABS: CREATININE 0.7 mg/dL (0.55-1.3)
[2021-02-25 09:48] LABS: BILIRUBIN,TOTAL 1.8 mg/dL (0.2-1); TOT PROT 6.7 g/dl (6.4-8.2)
[2021-02-25] MEDS: AMITRIPTYLINE HCL 25 MG TABLET PO SCH (22:01)
[2021-02-26] MEDS: oxyCODONE HCL 5 MG TABLET PO PRN ×2 (00:48→08:55)
[2021-02-26] MEDS: SODIUM CHLORIDE 0.45% 1,000 ML IV SCH (02:24)
[2021-02-26] MEDS: HYDROmorphone HCl 2 MG/ML VIAL IVPB PRN (05:24)
[2021-02-26] MEDS ORDERED: INSULIN (LEVEMIR) 100 UNITS/ML UNITS SQ ONE (07:40)
[2021-02-26 08:24] LABS: EOS % 2.9 % (0-4.5); HEMATOCRIT 22.3 % (35.4-49); HEMOGLOBIN 8.1 GM/dL (11.7-16.9); LYMPH % 20.9 % (8-40); MCH 23.2 pg (25.7-33.7); MCHC 36.1 g/dl (32.0-35.9); MEAN CELL VOLUME 64.2 fl (80-96); MONO % 12.7 % (3.8-10.2); NEUT % 62.5 % (42.8-82.8); PLATELET COUNT 250 10^3/uL (134-434); RBC 3.47 M/mm3 (4.00-5.60); RDW 21.8 % (11.9-15.9); WHITE BLOOD COUNT 12.2 K/mm3 (4.0-10.0)
[2021-02-26 08:56] LABS: CALCIUM 8.9 mg/dL (8.5-10.1)
[2021-02-26 08:57] LABS: ALBUMIN 3.3 g/dl (3.4-5.0); BLOOD UREA NITROGEN 10.4 mg/dL (7-18)
[2021-02-26 09:00] LABS: CREATININE 0.7 mg/dL (0.55-1.3)
[2021-02-26 09:01] LABS: TOT PROT 6.6 g/dl (6.4-8.2)
[2021-02-26 09:02] LABS: BILIRUBIN,TOTAL 1.6 mg/dL (0.2-1)
[2021-02-26] MEDS: ENOXAPARIN NA (PORCINE) 40 MG/0.4 ML DISP.SYRIN SQ SCH (09:10)
[2021-02-26] MEDS: FOLIC ACID 1 MG TABLET (FP) PO SCH (09:10)
[2021-02-26] MEDS: CHOLECALCIFEROL (VIT D3) 5000 UNITS (125 MCG) CAP PO SCH (09:10)
[2021-02-26] MEDS: MAGNESIUM OXIDE 400 MG TABLET (FP) PO SCH (09:10)
[2021-02-26] MEDS: NICOTINE 14 MG/24 HOURS TOPICAL PATCH TD SCH (09:10)
[2021-02-26 10:01] LABS: BILIRUBIN,DIRECT 0.4 mg/dL (0.0-0.2)
[2021-02-26 14:49] VITALS: BP 117/66; PULSE 85; TEMP 98.9
== END 2021-02-26 17:20 | disposition home health service (06) | DRG 43 ==
LOC: JER 00:41 → JERBED 02:29 → J7W 10:15
PROVIDERS: ADMIT Internal Medicine; ATTEND Internal Medicine
DX: G35 Multiple sclerosis (principal); D57.00 Hb-SS disease with crisis, unspecified; F11.20 Opioid dependence, uncomplicated; R74.8 Abnormal levels of other serum enzymes; N39.0 Urinary tract infection, site not specified
CPT/HCPCS: 36415; 71045-TC-FY; 71046-TC-FY; 74178-TC; 74181-TC; 76705-TC; 80053; 81003; 82248; 82550; 82728; 83540; 83550; 83615; 83735; 84100; 84484; 85025; 85045; 85610; 85651; 85730; 86140; 86704; 86708; 86803; 86850; 86900; 86901; 87086; 87340; 87517; 93005; 93010; 93306-TC; 93971-TC; 94010; 97116-GP; 97161-GP; 99285-25; C9803; Q9967; U0003; U0005

== ENCOUNTER 2021-02-27 03:25 | Inpatient (IN) | payer OTHER ==
[2021-02-27] MEDS ORDERED: HYDROmorphone HCL CARPU-JECT 2 MG/1 ML DISP.SYRIN IVPUSH ONE (03:54)
[2021-02-27] MEDS ORDERED: SODIUM CHLORIDE 1,000 ML IV STA (03:54)
[2021-02-27] MEDS ORDERED: ONDANSETRON 4 MG/2 ML VIAL IVPUSH ONE (03:54)
[2021-02-27] MEDS ORDERED: ONDANSETRON 4 MG/2 ML VIAL ONE (04:01)
[2021-02-27] MEDS ORDERED: HYDROmorphone HCl 2 MG/ML VIAL ONE ×3 (04:01→13:14)
[2021-02-27 04:24] LABS: BASO % 0.7 % (0-2.0); EOS % 1.5 % (0-4.5); HEMOGLOBIN 7.5 GM/dL (11.7-16.9); LYMPH % 10.9 % (8-40); MCH 22.4 pg (25.7-33.7); MCHC 35.6 g/dl (32.0-35.9); MEAN PLT VOLUME 8.3 fl (7.5-11.1); MONO % 13.4 % (3.8-10.2); NEUT % 73.5 % (42.8-82.8); PLATELET COUNT 215 10^3/uL (134-434); RBC 3.34 M/mm3 (4.00-5.60); RDW 21.5 % (11.9-15.9); RETICULOCYTES 6.37 % (0.5-1.5); WHITE BLOOD COUNT 15.9 K/mm3 (4.0-10.0)
[2021-02-27 04:32] LABS: INR 1.46 (0.83-1.09); PROTHROMBIN TIME (PATIENT) 16.4 SEC (9.7-13.0)
[2021-02-27 04:33] VITALS: BMI 20.6
[2021-02-27 04:35] LABS: ACTIVATED PTT 29.1 SECONDS (25.2-36.5)
[2021-02-27 04:44] LABS: CHLORIDE 104 mmol/L (98-107); SODIUM 139 mmol/L (136-145)
[2021-02-27 04:46] LABS: ALBUMIN 3.5 g/dl (3.4-5.0); ANION GAP 9 MMOL/L (8-16); BLOOD UREA NITROGEN 13.2 mg/dL (7-18); CALCIUM 8.7 mg/dL (8.5-10.1); CO2 26 mmol/L (21-32)
[2021-02-27 04:47] LABS: GLUCOSE,RANDOM 108 mg/dL (74-106); MAGNESIUM 2.1 mg/dL (1.8-2.4)
[2021-02-27 04:49] LABS: CREATININE 0.9 mg/dL (0.55-1.3); SGOT/AST 63 U/L (15-37); SGPT/ALT 91 U/L (13-61)
[2021-02-27 04:51] LABS: BILIRUBIN,TOTAL 1.8 mg/dL (0.2-1); LDH 523 U/L (87-246)
[2021-02-27 04:52] LABS: ALK PHOS 114 U/L (45-117)
[2021-02-27] MEDS ORDERED: ACETAMINOPHEN 325 MG TABLET (FP) PO PRN (06:31)
[2021-02-27] MEDS ORDERED: POLYETHYLENE GLYCOL (HEALTHYLAX) 3350 17 GM PACKET PO PRN (06:31)
[2021-02-27] MEDS ORDERED: FOLIC ACID 1 MG TABLET (FP) ONE (08:06)
[2021-02-27] MEDS: HYDROmorphone HCl 2 MG/ML VIAL IVPUSH PRN ×3 (08:30→23:10)
[2021-02-27] MEDS: FOLIC ACID 1 MG TABLET (FP) PO SCH (09:00)
[2021-02-27] MEDS: ENOXAPARIN NA (PORCINE) 40 MG/0.4 ML DISP.SYRIN SQ SCH (18:17)
[2021-02-27] MEDS: oxyCODONE HCL 5 MG TABLET PO PRN (18:17)
[2021-02-28] MEDS: oxyCODONE HCL 5 MG TABLET PO PRN ×4 (00:15→22:54)
[2021-02-28 08:58] LABS: EOS % 2.5 % (0-4.5); HEMATOCRIT 20.3 % (35.4-49); HEMOGLOBIN 7.2 GM/dL (11.7-16.9); LYMPH % 14.1 % (8-40); MCH 22.5 pg (25.7-33.7); MCHC 35.4 g/dl (32.0-35.9); MEAN CELL VOLUME 63.8 fl (80-96); MEAN PLT VOLUME 8.9 fl (7.5-11.1); MONO % 11.9 % (3.8-10.2); NEUT % 70.5 % (42.8-82.8); PLATELET COUNT 241 10^3/uL (134-434); RBC 3.18 M/mm3 (4.00-5.60); RDW 22.3 % (11.9-15.9); WHITE BLOOD COUNT 12.8 K/mm3 (4.0-10.0)
[2021-02-28] MEDS: ENOXAPARIN NA (PORCINE) 40 MG/0.4 ML DISP.SYRIN SQ SCH (09:19)
[2021-02-28] MEDS: FOLIC ACID 1 MG TABLET (FP) PO SCH ×2 (09:20→09:21)
[2021-02-28 09:25] LABS: BLOOD UREA NITROGEN 10.2 mg/dL (7-18); CALCIUM 8.6 mg/dL (8.5-10.1)
[2021-02-28 09:26] LABS: ALBUMIN 3.4 g/dl (3.4-5.0)
[2021-02-28 09:29] LABS: CREATININE 0.7 mg/dL (0.55-1.3)
[2021-02-28 09:30] LABS: BILIRUBIN,TOTAL 1.8 mg/dL (0.2-1); TOT PROT 6.6 g/dl (6.4-8.2)
[2021-02-28] MEDS ORDERED: DIMETHYL FUMARATE PO SCH (10:00)
[2021-02-28] MEDS: HYDROmorphone HCl 2 MG/ML VIAL IVPUSH PRN (11:28)
[2021-02-28 13:18] LABS: ANISOCYTOSIS 3+; MACROCYTOSIS 0; OVALOCYTE 2+; PLATELET ESTIMATE NORMAL; TARGET CELLS 2+; TEAR DROP CELLS 2+
[2021-02-28] MEDS ORDERED: diphenhydrAMINE HCL 25 MG CAPSULE (FP) PO PRN (22:33)
[2021-03-01] MEDS: HYDROmorphone HCl 2 MG/ML VIAL IVPB PRN ×2 (01:00→09:04)
[2021-03-01] MEDS: oxyCODONE HCL 5 MG TABLET PO PRN ×2 (05:36→11:31)
[2021-03-01 08:21] LABS: BASO % 0.7 % (0-2.0); HEMATOCRIT 25.5 % (35.4-49); HEMOGLOBIN 9.2 GM/dL (11.7-16.9); LYMPH % 20.6 % (8-40); MCHC 35.9 g/dl (32.0-35.9); MEAN CELL VOLUME 66.9 fl (80-96); MEAN PLT VOLUME 9.2 fl (7.5-11.1); MONO % 11.6 % (3.8-10.2); NEUT % 63.1 % (42.8-82.8); PLATELET COUNT 314 10^3/uL (134-434); RBC 3.81 M/mm3 (4.00-5.60); RDW 24.7 % (11.9-15.9)
[2021-03-01 08:48] LABS: CALCIUM 8.4 mg/dL (8.5-10.1)
[2021-03-01 08:49] LABS: ALBUMIN 3.4 g/dl (3.4-5.0)
[2021-03-01 08:52] LABS: CREATININE 0.8 mg/dL (0.55-1.3)
[2021-03-01 08:53] LABS: BILIRUBIN,TOTAL 1.7 mg/dL (0.2-1)
[2021-03-01] MEDS: ENOXAPARIN NA (PORCINE) 40 MG/0.4 ML DISP.SYRIN SQ SCH (09:01)
[2021-03-01] MEDS: FOLIC ACID 1 MG TABLET (FP) PO SCH (09:04)
[2021-03-01 12:06] VITALS: BP 111/65; PULSE 72; TEMP 98.8
== END 2021-03-01 14:21 | disposition home or self-care (01) | DRG 43 ==
LOC: JER 03:25 → JERBED 05:10 → J7W 16:58
PROVIDERS: ADMIT Internal Medicine; ATTEND Internal Medicine
DX: G35 Multiple sclerosis (principal); D57.00 Hb-SS disease with crisis, unspecified; D64.9 Anemia, unspecified; R94.5 Abnormal results of liver function studies; F17.210 Nicotine dependence, cigarettes, uncomplicated
CPT/HCPCS: 36415; 36430; 71045-TC-FY; 80053; 82550; 83010; 83615; 83735; 84484; 85025; 85045; 85610; 85730; 86850; 86900; 86901; 86922; 93005; 93010; 94010; 97162-GP; 99285-25; C9803; P9058; U0003; U0005

== ENCOUNTER 2021-03-09 02:02 | Inpatient (IN) | payer OTHER ==
[2021-03-09] MEDS ORDERED: HYDROmorphone HCL CARPU-JECT 2 MG/1 ML DISP.SYRIN IVPUSH ONE ×2 (02:41→04:19)
[2021-03-09] MEDS ORDERED: SODIUM CHLORIDE 0.9% 500 ML INFUS.BAG IV ONE (02:43)
[2021-03-09] MEDS ORDERED: HYDROmorphone HCl 2 MG/ML VIAL ONE ×2 (02:46→04:22)
[2021-03-09 03:03] LABS: BASO % 0.3 % (0-2.0); HEMATOCRIT 25.2 % (35.4-49); HEMOGLOBIN 8.5 GM/dL (11.7-16.9); MCH 24.2 pg (25.7-33.7); MCHC 33.9 g/dl (32.0-35.9); MEAN CELL VOLUME 71.3 fl (80-96); MEAN PLT VOLUME 7.7 fl (7.5-11.1); MONO % 11.8 % (3.8-10.2); NEUT % 56.9 % (42.8-82.8); PLATELET COUNT 286 10^3/uL (134-434); RBC 3.53 M/mm3 (4.00-5.60); RDW 20.2 % (11.9-15.9); WHITE BLOOD COUNT 9.5 K/mm3 (4.0-10.0)
[2021-03-09 03:18] LABS: INR 1.19 (0.83-1.09); PROTHROMBIN TIME (PATIENT) 13.4 SEC (9.7-13.0)
[2021-03-09 03:21] LABS: ACTIVATED PTT 28.3 SECONDS (25.2-36.5)
[2021-03-09 03:23] LABS: CHLORIDE 108 mmol/L (98-107); SODIUM 142 mmol/L (136-145)
[2021-03-09 03:24] LABS: CALCIUM 8.5 mg/dL (8.5-10.1)
[2021-03-09 03:26] LABS: ANION GAP 7 MMOL/L (8-16); BLOOD UREA NITROGEN 6.3 mg/dL (7-18); CO2 27 mmol/L (21-32); GLUCOSE,RANDOM 91 mg/dL (74-106); LIPASE 149 U/L (73-393); MAGNESIUM 2.1 mg/dL (1.8-2.4)
[2021-03-09 03:29] LABS: CREATININE 0.8 mg/dL (0.55-1.3); SGOT/AST 34 U/L (15-37); SGPT/ALT 29 U/L (13-61)
[2021-03-09 03:30] LABS: ALK PHOS 93 U/L (45-117); TOT PROT 6.4 g/dl (6.4-8.2)
[2021-03-09 03:44] LABS: RETICULOCYTES 3.73 % (0.5-1.5)
[2021-03-09] MEDS ORDERED: ACETAMINOPHEN 325 MG TABLET (FP) PO PRN (05:29)
[2021-03-09] MEDS ORDERED: HEPARIN NA (PORCINE) 5,000 UNITS/ML 1ML VIAL SQ SCH (06:00)
[2021-03-09] MEDS ORDERED: POLYETHYLENE GLYCOL (HEALTHYLAX) 3350 17 GM PACKET ONE (09:58)
[2021-03-09] MEDS ORDERED: ACETAMINOPHEN 325 MG TABLET (FP) ONE (09:58)
[2021-03-09] MEDS ORDERED: HEPARIN NA (PORCINE) 5,000 UNITS/ML 1ML VIAL ONE (09:59)
[2021-03-09] MEDS ORDERED: DIMETHYL FUMARATE PO SCH (10:00)
[2021-03-09] MEDS: FOLIC ACID 1 MG TABLET (FP) PO SCH (10:09)
[2021-03-09] MEDS: POLYETHYLENE GLYCOL (HEALTHYLAX) 3350 17 GM PACKET PO SCH (10:09)
[2021-03-09] MEDS: LACTATED RINGERS SOLUTION 1,000 ML/1,000 ML INFUS.BAG IV SCH ×2 (13:41→20:01)
[2021-03-09 15:47] LABS: PH,URINE 8.5 (5.0-8.0); URINE APPEARANCE CLEAR; URINE BILIRUBIN NEGATIVE (NEGATIVE); URINE COLOR YELLOW; URINE GLUCOSE (UA) NEGATIVE (NEGATIVE); URINE KETONE NEGATIVE (NEGATIVE); URINE LEUK ESTERASE NEGATIVE (NEGATIVE); URINE NITRITE NEGATIVE (NEGATIVE); URINE PROTEIN NEGATIVE (NEGATIVE); URINE UROBILINOGEN 0.2 mg/dL (0.2-1.0)
[2021-03-09] MEDS: oxyCODONE HCL 5 MG TABLET PO PRN (16:04)
[2021-03-09 16:46] LABS: LDH 378 U/L (87-246)
[2021-03-09 20:36] VITALS: BMI 21.3
[2021-03-09] MEDS: SENNOSIDES 8.6MG TABLET (FP) PO SCH (22:08)
[2021-03-10] MEDS: oxyCODONE HCL 5 MG TABLET PO PRN ×3 (02:08→21:44)
[2021-03-10] MEDS: LACTATED RINGERS SOLUTION 1,000 ML/1,000 ML INFUS.BAG IV SCH ×4 (02:44→22:02)
[2021-03-10] MEDS: FOLIC ACID 1 MG TABLET (FP) PO SCH (11:40)
[2021-03-10] MEDS: POLYETHYLENE GLYCOL (HEALTHYLAX) 3350 17 GM PACKET PO SCH (11:41)
[2021-03-10] MEDS: ENOXAPARIN NA (PORCINE) 40 MG/0.4 ML DISP.SYRIN SQ SCH (11:41)
[2021-03-10] MEDS: SENNOSIDES 8.6MG TABLET (FP) PO SCH (21:44)
[2021-03-11] MEDS: oxyCODONE HCL 5 MG TABLET PO PRN ×3 (05:26→17:28)
[2021-03-11 09:45] LABS: BASO % 0.4 % (0-2.0); EOS % 2.1 % (0-4.5); HEMATOCRIT 28.1 % (35.4-49); HEMOGLOBIN 9.3 GM/dL (11.7-16.9); LYMPH % 14.1 % (8-40); MCH 23.9 pg (25.7-33.7); MCHC 33.2 g/dl (32.0-35.9); MEAN CELL VOLUME 71.9 fl (80-96); MONO % 9.1 % (3.8-10.2); NEUT % 74.3 % (42.8-82.8); PLATELET COUNT 317 10^3/uL (134-434); RBC 3.91 M/mm3 (4.00-5.60); RDW 18.5 % (11.9-15.9); WHITE BLOOD COUNT 12.6 K/mm3 (4.0-10.0)
[2021-03-11] MEDS: ENOXAPARIN NA (PORCINE) 40 MG/0.4 ML DISP.SYRIN SQ SCH (10:08)
[2021-03-11] MEDS: FOLIC ACID 1 MG TABLET (FP) PO SCH (10:08)
[2021-03-11] MEDS: POLYETHYLENE GLYCOL (HEALTHYLAX) 3350 17 GM PACKET PO SCH (10:08)
[2021-03-11] MEDS: GABAPENTIN 100 MG CAPSULE PO SCH ×2 (13:03→21:56)
[2021-03-11] MEDS: SENNOSIDES 8.6MG TABLET (FP) PO SCH ×2 (21:56→22:04)
[2021-03-12] MEDS: oxyCODONE HCL 5 MG TABLET PO PRN ×2 (03:47→11:47)
[2021-03-12] MEDS: GABAPENTIN 100 MG CAPSULE PO SCH ×2 (06:32→13:17)
[2021-03-12] MEDS: ENOXAPARIN NA (PORCINE) 40 MG/0.4 ML DISP.SYRIN SQ SCH (09:26)
[2021-03-12] MEDS: FOLIC ACID 1 MG TABLET (FP) PO SCH (09:26)
[2021-03-12] MEDS: POLYETHYLENE GLYCOL (HEALTHYLAX) 3350 17 GM PACKET PO SCH (09:26)
[2021-03-12 15:05] VITALS: BP 113/61; PULSE 97; TEMP 97.1
== END 2021-03-12 15:21 | disposition home or self-care (01) | DRG 662 ==
LOC: JER 02:02 → JERBED 04:59 → J5S 12:29
PROVIDERS: ATTEND Internal Medicine
DX: D57.00 Hb-SS disease with crisis, unspecified (principal); F11.20 Opioid dependence, uncomplicated; G35 Multiple sclerosis; M87.9 Osteonecrosis, unspecified; F17.210 Nicotine dependence, cigarettes, uncomplicated; G89.29 Other chronic pain; R74.01 Elevation of levels of liver transaminase levels; D64.9 Anemia, unspecified
CPT/HCPCS: 36415; 71045-TC-FY; 74177-TC; 80053; 81003; 82550; 83615; 83690; 83735; 84484; 85025; 85045; 85610; 85730; 87086; 93005; 93010; 99285-25; C9803; J1644; U0003; U0005

== ENCOUNTER 2021-03-31 18:03 | Observation (INO) | payer OTHER ==
[2021-03-31] MEDS ORDERED: HYDROmorphone HCL CARPU-JECT 2 MG/1 ML DISP.SYRIN IVPUSH ONE (22:21)
[2021-03-31] MEDS ORDERED: ONDANSETRON 4 MG/2 ML VIAL IVPUSH ONE (22:21)
[2021-03-31] MEDS ORDERED: ONDANSETRON 4 MG/2 ML VIAL ONE (22:52)
[2021-03-31] MEDS ORDERED: HYDROmorphone HCl 2 MG/ML VIAL ONE (22:52)
[2021-03-31 23:19] LABS: BASO % 1.4 % (0-2.0); EOS % 0.4 % (0-4.5); HEMATOCRIT 28.9 % (35.4-49); HEMOGLOBIN 9.5 GM/dL (11.7-16.9); LYMPH % 45.2 % (8-40); MCH 23.4 pg (25.7-33.7); RETICULOCYTES 2.08 % (0.5-1.5); WHITE BLOOD COUNT 6.7 K/mm3 (4.0-10.0)
[2021-03-31 23:24] LABS: INR 1.12 (0.83-1.09); PROTHROMBIN TIME (PATIENT) 13.1 SEC (9.7-13.0)
[2021-03-31 23:26] LABS: ACTIVATED PTT 30.6 SECONDS (25.2-36.5); MCHC 32.7 g/dl (32.0-35.9); MEAN CELL VOLUME 71.6 fl (80-96); MEAN PLT VOLUME 8.4 fl (7.5-11.1); PLATELET COUNT 234 10^3/uL (134-434); RBC 4.04 M/mm3 (4.00-5.60)
[2021-04-01 00:34] LABS: CHLORIDE 106 mmol/L (98-107); SODIUM 140 mmol/L (136-145)
[2021-04-01 00:36] LABS: CALCIUM 8.1 mg/dL (8.5-10.1)
[2021-04-01 00:37] LABS: ALBUMIN 3.3 g/dl (3.4-5.0); ANION GAP 6 MMOL/L (8-16); BLOOD UREA NITROGEN 6.1 mg/dL (7-18); CO2 28 mmol/L (21-32); GLUCOSE,RANDOM 81 mg/dL (74-106)
[2021-04-01 00:40] LABS: CREATININE 0.9 mg/dL (0.55-1.3); SGOT/AST 57 U/L (15-37); SGPT/ALT 53 U/L (13-61)
[2021-04-01 00:41] LABS: BILIRUBIN,TOTAL 1.1 mg/dL (0.2-1); TOT PROT 6.7 g/dl (6.4-8.2)
[2021-04-01 00:42] LABS: ALK PHOS 117 U/L (45-117)
[2021-04-01] MEDS ORDERED: HYDROmorphone HCL CARPU-JECT 2 MG/1 ML DISP.SYRIN IVPUSH ONE (01:44)
[2021-04-01] MEDS ORDERED: HYDROmorphone HCl 2 MG/ML VIAL ONE (01:52)
[2021-04-01] MEDS ORDERED: LACTATED RINGERS SOLUTION 1000 ML INFUS.BAG IV ONE (01:55)
[2021-04-01] MEDS ORDERED: ACETAMINOPHEN 325 MG TABLET (FP) PO PRN (04:15)
[2021-04-01] MEDS ORDERED: SODIUM CHLORIDE 1,000 ML IV SCH (04:15)
[2021-04-01 06:52] LABS: IRON SERUM 38 ug/dL (50-175)
[2021-04-01 06:53] LABS: TOTAL IRON BINDING CAPACITY 224 ug/dL (250-450)
[2021-04-01 07:05] LABS: LDH 364 U/L (87-246)
[2021-04-01] MEDS ORDERED: HEPARIN NA (PORCINE) 5,000 UNITS/ML 1ML VIAL ONE (08:24)
[2021-04-01] MEDS ORDERED: oxyCODONE HCL 5 MG TABLET ONE ×2 (08:33→18:08)
[2021-04-01] MEDS: LACTATED RINGERS SOLUTION 1,000 ML/1,000 ML INFUS.BAG IV SCH ×2 (08:44→20:53)
[2021-04-01] MEDS: HEPARIN NA (PORCINE) 5,000 UNITS/ML 1ML VIAL SQ SCH ×3 (08:44→23:43)
[2021-04-01] MEDS: oxyCODONE HCL 5 MG TABLET PO PRN ×3 (08:44→23:43)
[2021-04-01] MEDS ORDERED: DIMETHYL FUMARATE PO SCH (10:00)
[2021-04-01 17:41] LABS: CALCIUM 8.5 mg/dL (8.5-10.1)
[2021-04-01 17:42] LABS: ALBUMIN 3.3 g/dl (3.4-5.0); BLOOD UREA NITROGEN 7.5 mg/dL (7-18)
[2021-04-01 17:45] LABS: CREATININE 0.9 mg/dL (0.55-1.3)
[2021-04-01 17:46] LABS: HEMATOCRIT 29.2 % (35.4-49); HEMOGLOBIN 9.7 GM/dL (11.7-16.9); MCH 23.4 pg (25.7-33.7); MCHC 33.3 g/dl (32.0-35.9); MEAN CELL VOLUME 70.2 fl (80-96); MEAN PLT VOLUME 8.9 fl (7.5-11.1); PLATELET COUNT 224 10^3/uL (134-434); RBC 4.16 M/mm3 (4.00-5.60); RDW 15.9 % (11.9-15.9)
[2021-04-01 17:47] LABS: TOT PROT 6.8 g/dl (6.4-8.2)
[2021-04-01 21:01] VITALS: BMI 24.0
[2021-04-01 21:41] LABS: ANISOCYTOSIS 3+; MACROCYTOSIS 0; OVALOCYTE 1+; SICKELED CELLS 1+; TARGET CELLS 2+
[2021-04-01] MEDS ORDERED: SENNOSIDES 8.6MG TABLET (FP) PO SCH (22:00)
[2021-04-01 23:39] LABS: URINE APPEARANCE CLEAR; URINE BILIRUBIN NEGATIVE (NEGATIVE); URINE COLOR YELLOW; URINE GLUCOSE (UA) NEGATIVE (NEGATIVE); URINE KETONE NEGATIVE (NEGATIVE); URINE LEUK ESTERASE NEGATIVE (NEGATIVE); URINE NITRITE NEGATIVE (NEGATIVE); URINE PROTEIN NEGATIVE (NEGATIVE)
[2021-04-02] MEDS: HEPARIN NA (PORCINE) 5,000 UNITS/ML 1ML VIAL SQ SCH ×2 (06:05→17:05)
[2021-04-02] MEDS: oxyCODONE HCL 5 MG TABLET PO PRN ×2 (06:05→11:56)
[2021-04-02 10:29] LABS: ALBUMIN 3.5 g/dl (3.4-5.0); BLOOD UREA NITROGEN 7.8 mg/dL (7-18); CALCIUM 8.9 mg/dL (8.5-10.1)
[2021-04-02 10:32] LABS: CREATININE 0.8 mg/dL (0.55-1.3)
[2021-04-02 10:33] LABS: BILIRUBIN,TOTAL 1.4 mg/dL (0.2-1); TOT PROT 7.1 g/dl (6.4-8.2)
[2021-04-02 13:20] VITALS: PULSE 64
[2021-04-02 14:59] VITALS: BP 110/56
[2021-04-02] MEDS: LACTATED RINGERS SOLUTION 1,000 ML/1,000 ML INFUS.BAG IV SCH (17:01)
[2021-04-02 17:24] VITALS: TEMP 98.9
== END 2021-04-02 17:59 | disposition home or self-care (01) ==
LOC: JER 18:03 → INTOOBSV 04-01 00:34 → UNDOADMOB 04-01 00:34 → JERBED 04-01 00:34 → UNDOADMOB 04-01 04:06 → INTOOBSV 04-01 09:23 → OBSVTOIN 04-01 09:23 → J8W 04-01 20:32 → JERBED 04-01 20:32 → J8W 04-01 20:34 → JERBED 04-02 14:16
PROVIDERS: ADMIT Internal Medicine; ATTEND Internal Medicine
PROC: 3E023GC Introduction of Other Therapeutic Substance into Muscle, Percutaneous Approach (ICD-10-PCS; principal; 2021-04-02)
PROC: 3E033NZ Introduction of Analgesics, Hypnotics, Sedatives into Peripheral Vein, Percutaneous Approach (ICD-10-PCS; 2021-04-02)
PROC: 3E0337Z Introduction of Electrolytic and Water Balance Substance into Peripheral Vein, Percutaneous Approach (ICD-10-PCS; 2021-04-02)
PROC: 3E033GC Introduction of Other Therapeutic Substance into Peripheral Vein, Percutaneous Approach (ICD-10-PCS; 2021-04-02)
DX: D57.1 Sickle-cell disease without crisis (principal); G35 Multiple sclerosis; D56.9 Thalassemia, unspecified; D64.9 Anemia, unspecified; U07.1 COVID-19; Z29.9 Encounter for prophylactic measures, unspecified; M79.10 Myalgia, unspecified site
CPT/HCPCS: 36415; 71046-TC-FY; 80053; 81003; 82550; 82728; 83010; 83540; 83550; 83615; 84484; 85025; 85045; 85610; 85730; 86140; 86850; 86900; 86901; 93005; 93010; 96372; 96374; 96375; 99285-25; C9803-CS; G0378; J1644; U0003; U0005

== ENCOUNTER 2021-09-30 16:31 | Inpatient (IN) | payer OTHER ==
[2021-09-30 16:54] VITALS: BMI 20.3
[2021-09-30] MEDS ORDERED: DOCUSATE SODIUM 100 MG CAPSULE (FP) PO ONE ×2 (19:14→19:43)
[2021-09-30] MEDS ORDERED: HYDROmorphone HCL CARPU-JECT 2 MG/1 ML DISP.SYRIN IVPB ONE (19:14)
[2021-09-30] MEDS ORDERED: SODIUM CHLORIDE 0.9% 500 ML INFUS.BAG IV ONE (19:14)
[2021-09-30] MEDS ORDERED: HYDROmorphone HCl 2 MG/ML VIAL ONE (19:44)
[2021-09-30 20:27] LABS: BASO % 0.4 % (0-2.0); EOS % 0.1 % (0-4.5); HEMATOCRIT 30.7 % (35.4-49); HEMOGLOBIN 10.1 GM/dL (11.7-16.9); LYMPH % 14.9 % (8-40); MCH 22.2 pg (25.7-33.7); MCHC 32.9 g/dl (32.0-35.9); MEAN CELL VOLUME 67.5 fl (80-96); MEAN PLT VOLUME 8.5 fl (7.5-11.1); MONO % 20.1 % (3.8-10.2); NEUT % 64.5 % (42.8-82.8); PLATELET COUNT 290 10^3/uL (134-434); RBC 4.55 M/mm3 (4.00-5.60); RDW 15.9 % (11.9-15.9); RETICULOCYTES 2.03 % (0.5-1.5); WHITE BLOOD COUNT 7.6 K/mm3 (4.0-10.0)
[2021-09-30 20:45] LABS: INR 1.19 (0.83-1.09); PROTHROMBIN TIME (PATIENT) 13.7 SEC (9.7-13.0)
[2021-09-30 20:48] LABS: ALBUMIN 4.1 g/dl (3.4-5.0); BLOOD UREA NITROGEN 6.6 mg/dL (7-18)
[2021-09-30 20:51] LABS: CREATININE 0.7 mg/dL (0.55-1.3)
[2021-09-30 20:52] LABS: TOT PROT 7.6 g/dl (6.4-8.2)
[2021-09-30 20:53] LABS: BILIRUBIN,TOTAL 1.4 mg/dL (0.2-1)
[2021-09-30 21:06] LABS: ERYTHROCYTE SEDIMENTATION RATE 5 mm/hr (0-10)
[2021-09-30 21:14] LABS: ANISOCYTOSIS 2+; MACROCYTOSIS 0
[2021-10-01] MEDS: SODIUM CHLORIDE 1,000 ML IV SCH (03:38)
[2021-10-01] MEDS ORDERED: oxyCODONE HCL 5 MG TABLET ONE ×2 (05:48→10:16)
[2021-10-01] MEDS: oxyCODONE HCL 5 MG TABLET PO PRN ×4 (05:57→22:11)
[2021-10-01 07:58] LABS: HEMATOCRIT 28.7 % (35.4-49); HEMOGLOBIN 9.8 GM/dL (11.7-16.9); MCH 22.8 pg (25.7-33.7); MEAN CELL VOLUME 66.8 fl (80-96); MEAN PLT VOLUME 8.9 fl (7.5-11.1); PLATELET COUNT 261 10^3/uL (134-434); RDW 15.5 % (11.9-15.9); WHITE BLOOD COUNT 9.9 K/mm3 (4.0-10.0)
[2021-10-01 08:09] LABS: CALCIUM 8.3 mg/dL (8.5-10.1)
[2021-10-01 08:10] LABS: ALBUMIN 3.6 g/dl (3.4-5.0); BLOOD UREA NITROGEN 7.2 mg/dL (7-18); MAGNESIUM 2.1 mg/dL (1.8-2.4)
[2021-10-01 08:13] LABS: CREATININE 0.7 mg/dL (0.55-1.3)
[2021-10-01 08:14] LABS: TOT PROT 7.1 g/dl (6.4-8.2)
[2021-10-01 08:15] LABS: BILIRUBIN,TOTAL 1.4 mg/dL (0.2-1)
[2021-10-01 08:40] LABS: ANISOCYTOSIS 2+; MACROCYTOSIS 0; SICKELED CELLS 2+; TARGET CELLS 2+
[2021-10-01] MEDS ORDERED: HEPARIN NA (PORCINE) 5,000 UNITS/ML 1ML VIAL SQ SCH (10:00)
[2021-10-01] MEDS ORDERED: ENOXAPARIN NA (PORCINE) 40 MG/0.4 ML DISP.SYRIN SQ ONE (10:17)
[2021-10-01] MEDS: ENOXAPARIN NA (PORCINE) 40 MG/0.4 ML DISP.SYRIN SQ SCH (10:24)
[2021-10-01] MEDS ORDERED: ACETAMINOPHEN 325 MG TABLET (FP) PO PRN (10:37)
[2021-10-01] MEDS ORDERED: POLYETHYLENE GLYCOL (HEALTHYLAX) 3350 17 GM PACKET PO PRN (10:37)
[2021-10-01] MEDS: SENNOSIDES 8.6MG TABLET (FP) PO SCH (22:12)
[2021-10-02] MEDS: oxyCODONE HCL 5 MG TABLET PO PRN ×3 (03:12→18:33)
[2021-10-02] MEDS: SODIUM CHLORIDE 1,000 ML IV SCH ×2 (06:02→18:32)
[2021-10-02 08:17] LABS: BLOOD UREA NITROGEN 8.3 mg/dL (7-18)
[2021-10-02 08:20] LABS: CREATININE 0.7 mg/dL (0.55-1.3)
[2021-10-02 08:26] LABS: HEMATOCRIT 25.9 % (35.4-49); HEMOGLOBIN 8.8 GM/dL (11.7-16.9); MCH 22.7 pg (25.7-33.7); MCHC 34.1 g/dl (32.0-35.9); MEAN CELL VOLUME 66.6 fl (80-96); PLATELET COUNT 219 10^3/uL (134-434); RBC 3.89 M/mm3 (4.00-5.60); RDW 16.6 % (11.9-15.9); WHITE BLOOD COUNT 8.7 K/mm3 (4.0-10.0)
[2021-10-02] MEDS: ENOXAPARIN NA (PORCINE) 40 MG/0.4 ML DISP.SYRIN SQ SCH (09:21)
[2021-10-02] MEDS: FOLIC ACID 1 MG TABLET (FP) PO SCH (09:22)
[2021-10-02] MEDS ORDERED: DIMETHYL FUMARATE PO SCH (10:00)
[2021-10-02 10:12] LABS: ANISOCYTOSIS 1+; MACROCYTOSIS 0; SICKELED CELLS 2+
[2021-10-02] MEDS: SENNOSIDES 8.6MG TABLET (FP) PO SCH (21:29)
[2021-10-03] MEDS: oxyCODONE HCL 5 MG TABLET PO PRN ×4 (00:32→20:51)
[2021-10-03 08:45] LABS: HEMATOCRIT 25.1 % (35.4-49); HEMOGLOBIN 8.6 GM/dL (11.7-16.9); MCH 22.3 pg (25.7-33.7); MCHC 34.2 g/dl (32.0-35.9); MEAN CELL VOLUME 65.3 fl (80-96); MEAN PLT VOLUME 9.4 fl (7.5-11.1); PLATELET COUNT 184 10^3/uL (134-434); RBC 3.85 M/mm3 (4.00-5.60); RDW 18.4 % (11.9-15.9); WHITE BLOOD COUNT 9.3 K/mm3 (4.0-10.0)
[2021-10-03 08:58] LABS: CALCIUM 8.2 mg/dL (8.5-10.1)
[2021-10-03 08:59] LABS: BLOOD UREA NITROGEN 8.9 mg/dL (7-18)
[2021-10-03 09:02] LABS: CREATININE 0.7 mg/dL (0.55-1.3)
[2021-10-03] MEDS: FOLIC ACID 1 MG TABLET (FP) PO SCH (09:21)
[2021-10-03] MEDS: ENOXAPARIN NA (PORCINE) 40 MG/0.4 ML DISP.SYRIN SQ SCH (09:22)
[2021-10-03] MEDS: SODIUM CHLORIDE 1,000 ML IV SCH (09:22)
[2021-10-03 09:42] LABS: ANISOCYTOSIS 0; MACROCYTOSIS 0; OVALOCYTE 1+; SICKELED CELLS 2+; TARGET CELLS 1+
[2021-10-03] MEDS: SENNOSIDES 8.6MG TABLET (FP) PO SCH (21:41)
[2021-10-04] MEDS: oxyCODONE HCL 5 MG TABLET PO PRN ×3 (05:50→20:22)
[2021-10-04] MEDS: FOLIC ACID 1 MG TABLET (FP) PO SCH (10:55)
[2021-10-04] MEDS: ENOXAPARIN NA (PORCINE) 40 MG/0.4 ML DISP.SYRIN SQ SCH (10:55)
[2021-10-04] MEDS: SENNOSIDES 8.6MG TABLET (FP) PO SCH (21:24)
[2021-10-05] MEDS: oxyCODONE HCL 5 MG TABLET PO PRN ×2 (00:23→07:38)
[2021-10-05 07:48] LABS: HEMATOCRIT 22.8 % (35.4-49); HEMOGLOBIN 8.3 GM/dL (11.7-16.9); MCH 22.4 pg (25.7-33.7); MCHC 36.2 g/dl (32.0-35.9); MEAN CELL VOLUME 61.7 fl (80-96); MEAN PLT VOLUME 9.1 fl (7.5-11.1); PLATELET COUNT 201 10^3/uL (134-434); RDW 20.8 % (11.9-15.9); WHITE BLOOD COUNT 13.8 K/mm3 (4.0-10.0)
[2021-10-05 08:10] LABS: BLOOD UREA NITROGEN 12.3 mg/dL (7-18); CALCIUM 8.8 mg/dL (8.5-10.1)
[2021-10-05 08:15] LABS: CREATININE 0.7 mg/dL (0.55-1.3)
[2021-10-05 09:18] VITALS: BP 113/60; PULSE 90; TEMP 98.7
[2021-10-05] MEDS: ENOXAPARIN NA (PORCINE) 40 MG/0.4 ML DISP.SYRIN SQ SCH (10:02)
[2021-10-05] MEDS: FOLIC ACID 1 MG TABLET (FP) PO SCH (10:02)
[2021-10-05 10:20] LABS: ANISOCYTOSIS 3+; MACROCYTOSIS 0; OVALOCYTE 3+; SICKELED CELLS 2+; TARGET CELLS 2+
[2021-10-05 11:43] LABS: PH,URINE 7.5 (5.0-8.0); URINE APPEARANCE CLEAR; URINE BILIRUBIN NEGATIVE (NEGATIVE); URINE COLOR YELLOW; URINE GLUCOSE (UA) NEGATIVE (NEGATIVE); URINE KETONE NEGATIVE (NEGATIVE); URINE LEUK ESTERASE NEGATIVE (NEGATIVE); URINE NITRITE NEGATIVE (NEGATIVE); URINE PROTEIN NEGATIVE (NEGATIVE); URINE UROBILINOGEN 4.0 E.U/dl mg/dL (0.2-1.0)
== END 2021-10-05 13:10 | disposition home health service (06) | DRG 204 ==
LOC: JER 16:31 → JERBED 10-01 00:11 → J4W 10-01 12:11
PROVIDERS: ADMIT Internal Medicine; ATTEND Internal Medicine
DX: R55 Syncope and collapse (principal); U07.1 COVID-19; R29.6 Repeated falls; E86.0 Dehydration; G35 Multiple sclerosis; D57.818 Other sickle-cell disorders with crisis with other specified complication; G83.89 Other specified paralytic syndromes; G89.29 Other chronic pain; R50.9 Fever, unspecified
CPT/HCPCS: 0241U-QW; 36415; 70450-TC; 70553-TC; 71046-TC-FY; 72125-TC; 72131-TC; 80048; 80053; 80061; 81003; 82550; 83010; 83735; 84443; 84484; 85025; 85045; 85379; 85610; 85651; 86140; 93005; 93010; 97116-GP; 97162-GP; 99285-25

== ENCOUNTER 2023-03-13 03:20 | Inpatient (IN) | payer OTHER ==
[2023-03-13] MEDS ORDERED: SODIUM CHLORIDE 1,000 ML IV STA (03:45)
[2023-03-13] MEDS ORDERED: HYDROmorphone HCl 2 MG/ML VIAL IVPUSH ONE ×2 (04:08→08:35)
[2023-03-13] MEDS ORDERED: methylPREDNISolone NA SUCC 125 MG/2 ML VIAL IVPB ONE (04:08)
[2023-03-13] MEDS ORDERED: ONDANSETRON 4 MG/2 ML VIAL IVPUSH ONE (04:08)
[2023-03-13] MEDS ORDERED: HYDROmorphone HCl 2 MG/ML VIAL ONE ×4 (04:12→18:52)
[2023-03-13] MEDS ORDERED: ONDANSETRON 4 MG/2 ML VIAL ONE (04:13)
[2023-03-13] MEDS ORDERED: methylPREDNISolone NA SUCC 125 MG/2 ML VIAL ONE (04:13)
[2023-03-13 04:58] LABS: INR 1.24 (0.83-1.09); PROTHROMBIN TIME (PATIENT) 14.3 SEC (9.7-13.0)
[2023-03-13 05:01] LABS: ACTIVATED PTT 29.5 SECONDS (25.2-36.5)
[2023-03-13 05:18] LABS: POTASSIUM 3.9 mmol/L (3.5-5.1)
[2023-03-13 05:20] LABS: CALCIUM 8.4 mg/dL (8.5-10.1)
[2023-03-13 05:21] LABS: ALBUMIN 3.5 g/dl (3.4-5.0); BLOOD UREA NITROGEN 7.6 mg/dL (7-18)
[2023-03-13 05:24] LABS: CREATININE 0.8 mg/dL (0.55-1.3)
[2023-03-13 05:25] LABS: TOT PROT 7.1 g/dl (6.4-8.2)
[2023-03-13 05:31] LABS: BILIRUBIN,TOTAL 1.5 mg/dL (0.2-1)
[2023-03-13 05:37] LABS: HEMATOCRIT 24.3 % (35.4-49); HEMOGLOBIN 8.3 GM/dL (11.7-16.9); MCHC 34.3 g/dl (32.0-35.9); MEAN CELL VOLUME 64.1 fl (80-96); MEAN PLT VOLUME 8.8 fl (7.5-11.1); PLATELET COUNT 298 10^3/uL (134-434); RBC 3.79 M/mm3 (4.00-5.60); RDW 18.8 % (11.9-15.9); RETICULOCYTES 3.54 % (0.5-1.5); WHITE BLOOD COUNT 12.2 K/mm3 (4.0-10.0)
[2023-03-13 06:55] LABS: ANISOCYTOSIS 3+; MACROCYTOSIS 0; OVALOCYTE 1+; ROULEAU 1+; TARGET CELLS 2+
[2023-03-13 08:53] VITALS: RESP 18
[2023-03-13] MEDS: DEXTROSE 5%-NORMAL SALINE 1,000 ML IV SCH (11:35)
[2023-03-13] MEDS: HYDROmorphone HCl 2 MG/ML VIAL IVPB PRN ×2 (12:52→18:58)
[2023-03-13] MEDS ORDERED: diphenhydrAMINE HCL 25 MG CAPSULE (FP) PO PRN (14:25)
[2023-03-13] MEDS ORDERED: ACETAMINOPHEN 325 MG TABLET (FP) PO PRN (14:25)
[2023-03-13] MEDS: THIAMINE HCL 100 MG TABLET (FP) PO SCH (21:43)
[2023-03-13] MEDS ORDERED: HEPARIN NA (PORCINE) 5,000 UNITS/ML 1ML VIAL ONE (21:43)
[2023-03-13] MEDS ORDERED: THIAMINE HCL 100 MG TABLET (FP) ONE (21:43)
[2023-03-13] MEDS: HEPARIN NA (PORCINE) 5,000 UNITS/ML 1ML VIAL SQ SCH (21:43)
[2023-03-14] MEDS: HYDROmorphone HCl 2 MG/ML VIAL IVPB PRN ×2 (01:11→08:27)
[2023-03-14] MEDS: DEXTROSE 5%-NORMAL SALINE 1,000 ML IV SCH (01:19)
[2023-03-14 02:26] VITALS: BMI 20.3
[2023-03-14 09:41] LABS: HEMATOCRIT 24.7 % (35.4-49); HEMOGLOBIN 8.4 GM/dL (11.7-16.9); MCH 21.6 pg (25.7-33.7); MCHC 34.1 g/dl (32.0-35.9); MEAN CELL VOLUME 63.3 fl (80-96); MEAN PLT VOLUME 8.8 fl (7.5-11.1); PLATELET COUNT 346 10^3/uL (134-434); RDW 20.3 % (11.9-15.9); WHITE BLOOD COUNT 18.4 K/mm3 (4.0-10.0)
[2023-03-14 09:58] LABS: ALBUMIN 3.6 g/dl (3.4-5.0); BLOOD UREA NITROGEN 10.4 mg/dL (7-18)
[2023-03-14] MEDS ORDERED: FOLIC ACID 1 MG TABLET (FP) PO SCH (10:00)
[2023-03-14 10:01] LABS: CREATININE 0.8 mg/dL (0.55-1.3)
[2023-03-14 10:02] LABS: TOT PROT 7.2 g/dl (6.4-8.2)
[2023-03-14 10:03] LABS: BILIRUBIN,TOTAL 1.7 mg/dL (0.2-1)
[2023-03-14] MEDS: THIAMINE HCL 100 MG TABLET (FP) PO SCH (10:10)
[2023-03-14] MEDS: HEPARIN NA (PORCINE) 5,000 UNITS/ML 1ML VIAL SQ SCH (10:14)
[2023-03-14 12:25] VITALS: BP 119/54; PULSE 80; TEMP 97.6
== END 2023-03-14 10:54 | disposition home or self-care (01) | DRG 662 ==
LOC: JER 03:20 → JERBED 06:42 → OBSVTOIN 10:56 → J5S 23:44
PROVIDERS: ADMIT Family Medicine; ATTEND Family Medicine
DX: D57.00 Hb-SS disease with crisis, unspecified (principal); G35 Multiple sclerosis; R74.8 Abnormal levels of other serum enzymes; D64.9 Anemia, unspecified; F17.210 Nicotine dependence, cigarettes, uncomplicated
CPT/HCPCS: 36415; 80053; 83735; 85025; 85027; 85045; 85610; 85730; 93005; 93010; 99285-25; G0378; J1644

== ENCOUNTER 2023-03-15 21:46 | Emergency (ER) | payer OTHER ==
[2023-03-15 22:09] VITALS: BMI 20.6
[2023-03-16] MEDS ORDERED: SODIUM CHLORIDE 0.9% 500 ML INFUS.BAG IV ONE (00:30)
[2023-03-16] MEDS ORDERED: HYDROmorphone HCL 2 MG TABLET PO ONE (00:31)
[2023-03-16] MEDS ORDERED: HYDROmorphone HCL 2 MG TABLET ONE (00:36)
[2023-03-16 01:29] LABS: ALBUMIN 3.6 g/dl (3.4-5.0); CALCIUM 8.8 mg/dL (8.5-10.1)
[2023-03-16 01:30] LABS: BLOOD UREA NITROGEN 10.9 mg/dL (7-18)
[2023-03-16 01:33] LABS: CREATININE 0.8 mg/dL (0.55-1.3)
[2023-03-16 01:34] LABS: BILIRUBIN,TOTAL 1.5 mg/dL (0.2-1); TOT PROT 7.2 g/dl (6.4-8.2)
[2023-03-16 01:38] LABS: HEMATOCRIT 25.1 % (35.4-49); HEMOGLOBIN 8.6 GM/dL (11.7-16.9); MCH 21.8 pg (25.7-33.7); MCHC 34.2 g/dl (32.0-35.9); MEAN CELL VOLUME 63.7 fl (80-96); MEAN PLT VOLUME 8.6 fl (7.5-11.1); PLATELET COUNT 328 10^3/uL (134-434); RBC 3.94 M/mm3 (4.00-5.60); RDW 21.4 % (11.9-15.9); RETICULOCYTES 4.47 % (0.5-1.5)
[2023-03-16] MEDS ORDERED: HYDROmorphone HCl 2 MG/ML VIAL IVPB ONE (01:58)
[2023-03-16] MEDS ORDERED: HYDROmorphone HCl 2 MG/ML VIAL ONE (02:02)
[2023-03-16 02:57] LABS: ANISOCYTOSIS 2+; MACROCYTOSIS 0; SICKELED CELLS 2+; TARGET CELLS 2+
[2023-03-16 04:52] VITALS: BP 113/71; PULSE 82; RESP 15; TEMP 98.6
== END 2023-03-16 09:10 | disposition home or self-care (01) ==
LOC: JER 21:46
PROC: 3E033GC Introduction of Other Therapeutic Substance into Peripheral Vein, Percutaneous Approach (ICD-10-PCS; principal; 2023-03-16)
DX: M54.50 Low back pain, unspecified (principal); M25.559 Pain in unspecified hip; D57.00 Hb-SS disease with crisis, unspecified; R07.89 Other chest pain
CPT/HCPCS: 36415; 80053; 85025; 85045; 93005; 93010; 99284-25

== ENCOUNTER 2023-04-09 19:24 | Emergency (ER) | payer OTHER ==
[2023-04-09 19:30] VITALS: BP 110/63; PULSE 83; RESP 18; TEMP 98; BMI 20.3
[2023-04-09] MEDS ORDERED: LIDOCAINE 5% TOPICAL PATCH TP ONE (20:10)
[2023-04-09] MEDS ORDERED: oxyCODONE HCL 5 MG TABLET PO ONE ×2 (20:10→20:57)
[2023-04-09] MEDS ORDERED: oxyCODONE HCL 5 MG TABLET ONE ×2 (20:24→21:08)
[2023-04-09] MEDS ORDERED: LIDOCAINE 4% PATCH TP ONE (20:24)
[2023-04-10] MEDS ORDERED: LIDOCAINE PATCH REMOVAL MC SCH (08:00)
== END 2023-04-09 22:15 | disposition home or self-care (01) ==
LOC: JER 19:24
DX: M54.50 Low back pain, unspecified (principal); W01.0XXA Fall on same level from slipping, tripping and stumbling without subsequent striking against object, initial encounter; Y92.008 Other place in unspecified non-institutional (private) residence as the place of occurrence of the external cause
CPT/HCPCS: 99283-25

== ENCOUNTER 2023-05-03 19:05 | Emergency (ER) | payer OTHER ==
[2023-05-03 19:13] VITALS: RESP 18; BMI 20.3
[2023-05-03] MEDS ORDERED: oxyCODONE HCL 5 MG TABLET ONE (22:21)
[2023-05-03] MEDS: oxyCODONE HCL 5 MG TABLET PO ONE (22:25)
[2023-05-03 23:02] VITALS: BP 108/53; PULSE 88; TEMP 98.3
== END 2023-05-04 01:54 | disposition home or self-care (01) ==
LOC: JER 19:05
DX: D57.00 Hb-SS disease with crisis, unspecified (principal); W01.0XXA Fall on same level from slipping, tripping and stumbling without subsequent striking against object, initial encounter; Y92.009 Unspecified place in unspecified non-institutional (private) residence as the place of occurrence of the external cause
CPT/HCPCS: 99283-25

== ENCOUNTER 2023-05-04 18:08 | Emergency (ER) | payer OTHER ==
[2023-05-04 18:17] VITALS: TEMP 98; BMI 20.5
[2023-05-04] MEDS ORDERED: HYDROmorphone HCl 2 MG/ML VIAL ONE (18:49)
[2023-05-04] MEDS: HYDROmorphone HCl 2 MG/ML VIAL IVPUSH ONE (19:08)
[2023-05-04 19:13] LABS: HEMATOCRIT 27.4 % (35.4-49); HEMOGLOBIN 9.3 GM/dL (11.7-16.9); MCH 22.1 pg (25.7-33.7); MCHC 34.1 g/dl (32.0-35.9); MEAN CELL VOLUME 64.9 fl (80-96); MEAN PLT VOLUME 8.7 fl (7.5-11.1); PLATELET COUNT 285 10^3/uL (134-434); RBC 4.22 M/mm3 (4.00-5.60); RDW 16.9 % (11.9-15.9); RETICULOCYTES 3.46 % (0.5-1.5); WHITE BLOOD COUNT 9.7 K/mm3 (4.0-10.0)
[2023-05-04 19:39] LABS: POTASSIUM 4.4 mmol/L (3.5-5.1)
[2023-05-04 19:41] LABS: ALBUMIN 3.8 g/dl (3.4-5.0)
[2023-05-04 19:42] LABS: BLOOD UREA NITROGEN 9.2 mg/dL (7-18)
[2023-05-04 19:44] LABS: CREATININE 0.8 mg/dL (0.55-1.3)
[2023-05-04 19:46] LABS: BILIRUBIN,TOTAL 1.4 mg/dL (0.2-1); TOT PROT 7.4 g/dl (6.4-8.2)
[2023-05-04] MEDS: SODIUM CHLORIDE 0.9% 500 ML INFUS.BAG IV ONE (20:35)
[2023-05-04 21:40] VITALS: BP 96/61; PULSE 89; RESP 20
== END 2023-05-04 22:01 | disposition home or self-care (01) ==
LOC: JER 18:08
PROC: 3E033GC Introduction of Other Therapeutic Substance into Peripheral Vein, Percutaneous Approach (ICD-10-PCS; principal; 2023-05-04)
DX: M25.552 Pain in left hip (principal); M79.605 Pain in left leg; D57.00 Hb-SS disease with crisis, unspecified; G35 Multiple sclerosis; W19.XXXA Unspecified fall, initial encounter; Y93.89 Activity, other specified; Y92.009 Unspecified place in unspecified non-institutional (private) residence as the place of occurrence of the external cause
CPT/HCPCS: 36415; 71046-TC-FY; 73502-TC-LT-FY; 73562-TC-LT-FY; 73590-TC-LT-FY; 80053; 85027; 85045; 96374; 99284-25

== ENCOUNTER 2023-06-07 21:59 | Emergency (ER) | payer OTHER ==
[2023-06-07 22:10] VITALS: BMI 20.3
[2023-06-08] MEDS ORDERED: LIDOCAINE 4% PATCH TP ONE (00:01)
[2023-06-08] MEDS ORDERED: oxyCODONE HCL 5 MG TABLET ONE ×2 (00:01→02:30)
[2023-06-08] MEDS: oxyCODONE HCL 5 MG TABLET PO ONE ×2 (00:05→02:47)
[2023-06-08] MEDS: LIDOCAINE 5% TOPICAL PATCH TP ONE (00:05)
[2023-06-08] MEDS: LIDOCAINE PATCH REMOVAL MC SCH (00:06)
[2023-06-08 04:27] VITALS: BP 129/79; PULSE 71; RESP 17; TEMP 98.5
== END 2023-06-08 06:29 | disposition home or self-care (01) ==
LOC: JER 21:59
DX: L72.3 Sebaceous cyst (principal); M79.601 Pain in right arm; R20.0 Anesthesia of skin; R20.2 Paresthesia of skin; R06.02 Shortness of breath; R53.1 Weakness
CPT/HCPCS: 76882-TC-RT-FY; 99284-25

== ENCOUNTER 2023-11-08 21:23 | Emergency (ER) | payer OTHER ==
[2023-11-08 21:30] VITALS: TEMP 97.9; BMI 20.3
[2023-11-08] MEDS: KETOROLAC TROMETHAMINE 30 MG/1 ML VIAL IM ONE (22:10)
[2023-11-08] MEDS: LIDOCAINE PATCH REMOVAL MC SCH (22:13)
[2023-11-08] MEDS ORDERED: ACETAMINOPHEN 325 MG TABLET (FP) ONE (22:14)
[2023-11-08] MEDS ORDERED: KETOROLAC TROMETHAMINE 15 MG/ML VIAL ONE (22:15)
[2023-11-08] MEDS ORDERED: LIDOCAINE 5% TOPICAL PATCH ONE (22:15)
[2023-11-08] MEDS: ACETAMINOPHEN 500 MG TABLET (FP) PO ONE (22:28)
[2023-11-08] MEDS: KETOROLAC TROMETHAMINE 30 MG/1 ML VIAL IVPUSH ONE (22:28)
[2023-11-08] MEDS: LIDOCAINE 5% TOPICAL PATCH TP ONE (22:28)
[2023-11-08] MEDS ORDERED: HYDROmorphone HCL CARPU-JECT 2 MG/1 ML DISP.SYRIN ONE (22:43)
[2023-11-08 22:46] LABS: BASO % 1.1 % (0-2.0); EOS % 3.7 % (0-4.5); HEMATOCRIT 27.1 % (35.4-49); HEMOGLOBIN 9.1 GM/dL (11.7-16.9); LYMPH % 18.1 % (8-40); MCH 22.4 pg (25.7-33.7); MCHC 33.6 g/dl (32.0-35.9); MEAN CELL VOLUME 66.6 fl (80-96); MEAN PLT VOLUME 8.6 fl (7.5-11.1); MONO % 12.8 % (3.8-10.2); NEUT % 64.3 % (42.8-82.8); PLATELET COUNT 290 10^3/uL (134-434); RBC 4.08 M/mm3 (4.00-5.60); RDW 18.5 % (11.9-15.9)
[2023-11-08] MEDS: HYDROmorphone HCl 2 MG/ML VIAL SQ ONE (22:47)
[2023-11-08 22:51] LABS: ADD RBC MORPHOLOGY YES
[2023-11-08 22:54] LABS: POTASSIUM 3.7 mmol/L (3.5-5.1)
[2023-11-08 22:56] LABS: CALCIUM 8.6 mg/dL (8.5-10.1)
[2023-11-08 22:57] LABS: ALBUMIN 3.4 g/dl (3.4-5.0); BLOOD UREA NITROGEN 11.5 mg/dL (7-18)
[2023-11-08 23:00] LABS: CREATININE 0.9 mg/dL (0.55-1.3)
[2023-11-08 23:01] LABS: BILIRUBIN,TOTAL 1.4 mg/dL (0.2-1); TOT PROT 6.7 g/dl (6.4-8.2)
[2023-11-08 23:40] LABS: ANISOCYTOSIS 2+; MACROCYTOSIS 0; SICKELED CELLS 3+; TARGET CELLS 3+
[2023-11-09] MEDS: HYDROmorphone HCl 2 MG/ML VIAL SQ ONE (00:05)
[2023-11-09] MEDS ORDERED: HYDROmorphone HCL CARPU-JECT 2 MG/1 ML DISP.SYRIN ONE (00:06)
[2023-11-09 00:30] VITALS: BP 130/70; PULSE 76; RESP 19
== END 2023-11-09 01:08 | disposition home or self-care (01) ==
LOC: JER 21:23
PROC: 3E013NZ Introduction of Analgesics, Hypnotics, Sedatives into Subcutaneous Tissue, Percutaneous Approach (ICD-10-PCS; principal; 2023-11-08)
PROC: 3E023NZ Introduction of Analgesics, Hypnotics, Sedatives into Muscle, Percutaneous Approach (ICD-10-PCS; 2023-11-09)
DX: R07.89 Other chest pain (principal); R05.9 Cough, unspecified; R50.9 Fever, unspecified; Z20.822 Contact with and (suspected) exposure to COVID-19
CPT/HCPCS: 0241U-QW; 36415; 71045-TC-FY; 80053; 84484; 85025; 93005; 93010; 99285-25

== ENCOUNTER 2024-04-13 21:53 | Emergency (ER) | payer OTHER ==
[2024-04-13 22:11] VITALS: RESP 16; TEMP 98.8; BMI 23.9
[2024-04-13] MEDS ORDERED: ACETAMINOPHEN INJECTION 100 ML ONE (22:53)
[2024-04-13] MEDS: SODIUM CHLORIDE 0.9% 500 ML INFUS.BAG IV ONE (23:11)
[2024-04-13 23:16] LABS: HEMATOCRIT 28.8 % (35.4-49); HEMOGLOBIN 9.3 GM/dL (11.7-16.9); MCH 22.3 pg (25.7-33.7); MCHC 32.4 g/dl (32.0-35.9); MEAN CELL VOLUME 68.6 fl (80-96); MEAN PLT VOLUME 8.1 fl (7.5-11.1); PLATELET COUNT 236 10^3/uL (134-434); RDW 16.1 % (11.9-15.9); WHITE BLOOD COUNT 8.5 K/mm3 (4.0-10.0)
[2024-04-13 23:22] LABS: INR 1.1 (0.83-1.09); PROTHROMBIN TIME (PATIENT) 12.4 SEC (9.7-13.0)
[2024-04-13 23:25] LABS: ACTIVATED PTT 28.5 SECONDS (25.2-36.5)
[2024-04-13 23:34] LABS: POTASSIUM 4.2 mmol/L (3.5-5.1)
[2024-04-13 23:36] LABS: CALCIUM 8.9 mg/dL (8.5-10.1)
[2024-04-13 23:37] LABS: ALBUMIN 3.6 g/dl (3.4-5.0); BLOOD UREA NITROGEN 6.8 mg/dL (7-18); MAGNESIUM 2.2 mg/dL (1.8-2.4)
[2024-04-13] MEDS: ACETAMINOPHEN 1000 MG/100 ML BAG IVPB ONE (23:39)
[2024-04-13 23:40] LABS: CREATININE 0.7 mg/dL (0.55-1.3)
[2024-04-13] MEDS ORDERED: HYDROmorphone HCL CARPU-JECT 2 MG/1 ML DISP.SYRIN ONE (23:40)
[2024-04-13 23:41] LABS: BILIRUBIN,TOTAL 1.4 mg/dL (0.2-1); TOT PROT 6.9 g/dl (6.4-8.2)
[2024-04-13] MEDS: HYDROmorphone HCl 2 MG/ML VIAL IVPB ONE (23:45)
[2024-04-13 23:47] LABS: ANISOCYTOSIS 2+; MACROCYTOSIS 0; OVALOCYTE 1+; SICKELED CELLS 2+; TARGET CELLS 3+
[2024-04-14 00:39] LABS: EPI CELLS 10 /uL (0-25.1); HYALINE CASTS 0 /uL (0-3.1); PH,URINE 6.5 (5.0-8.0); URINE APPEARANCE CLEAR; URINE BACTERIA 6 /uL (0-1359); URINE BILIRUBIN NEGATIVE (NEGATIVE); URINE COLOR YELLOW; URINE GLUCOSE (UA) NEGATIVE (NEGATIVE); URINE KETONE NEGATIVE (NEGATIVE); URINE LEUK ESTERASE 1+ (NEGATIVE); URINE NITRITE NEGATIVE (NEGATIVE); URINE PROTEIN NEGATIVE (NEGATIVE); URINE RBC 19 /uL (0-23.9); URINE WBC 94 /uL (0-25.8)
[2024-04-14] MEDS ORDERED: HYDROmorphone HCL CARPU-JECT 2 MG/1 ML DISP.SYRIN ONE (01:38)
[2024-04-14] MEDS: HYDROmorphone HCl 2 MG/ML VIAL IVPUSH ONE (01:45)
[2024-04-14] MEDS ORDERED: IBUPROFEN 400 MG TABLET (FP) PO ONE (03:46)
[2024-04-14] MEDS: IBUPROFEN 400 MG TABLET (FP) PO ONE (03:46)
[2024-04-14 06:48] VITALS: BP 100/59; PULSE 75
== END 2024-04-14 14:22 | disposition home or self-care (01) ==
LOC: JER 21:53
PROC: 3E033NZ Introduction of Analgesics, Hypnotics, Sedatives into Peripheral Vein, Percutaneous Approach (ICD-10-PCS; principal; 2024-04-13)
PROC: 3E033NZ Introduction of Analgesics, Hypnotics, Sedatives into Peripheral Vein, Percutaneous Approach (ICD-10-PCS; 2024-04-13)
DX: R10.11 Right upper quadrant pain (principal); R11.2 Nausea with vomiting, unspecified; K59.00 Constipation, unspecified; R29.898 Other symptoms and signs involving the musculoskeletal system
CPT/HCPCS: 36415; 76705-TC; 80053; 81003; 83690; 83735; 85025; 85610; 85730; 86850; 86900; 86901; 87086; 99284-25

== ENCOUNTER 2024-06-05 22:13 | Emergency (ER) | payer OTHER ==
[2024-06-05 23:14] VITALS: TEMP 98.1; BMI 20.3
[2024-06-06] MEDS ORDERED: HYDROmorphone HCL CARPU-JECT 2 MG/1 ML DISP.SYRIN ONE (00:32)
[2024-06-06] MEDS: SODIUM CHLORIDE 0.9% 500 ML INFUS.BAG IV ONE (01:01)
[2024-06-06] MEDS: HYDROmorphone HCl 2 MG/ML VIAL IVPUSH ONE (01:01)
[2024-06-06 01:02] LABS: HEMATOCRIT 30.4 % (35.4-49); HEMOGLOBIN 9.8 GM/dL (11.7-16.9); MCH 22.6 pg (25.7-33.7); MCHC 32.2 g/dl (32.0-35.9); MEAN CELL VOLUME 70.3 fl (80-96); MEAN PLT VOLUME 8.5 fl (7.5-11.1); PLATELET COUNT 299 10^3/uL (134-434); RBC 4.33 M/mm3 (4.00-5.60); RDW 14.8 % (11.9-15.9); WHITE BLOOD COUNT 9.2 K/mm3 (4.0-10.0)
[2024-06-06 01:17] LABS: POTASSIUM 4.2 mmol/L (3.5-5.1)
[2024-06-06 01:19] LABS: CALCIUM 8.8 mg/dL (8.5-10.1)
[2024-06-06 01:20] LABS: ALBUMIN 3.5 g/dl (3.4-5.0); BLOOD UREA NITROGEN 9.1 mg/dL (7-18)
[2024-06-06 01:23] LABS: CREATININE 0.7 mg/dL (0.55-1.3)
[2024-06-06 01:24] LABS: TOT PROT 6.8 g/dl (6.4-8.2)
[2024-06-06 01:42] LABS: RETICULOCYTES 2.07 % (0.5-1.5)
[2024-06-06] MEDS ORDERED: ACETAMINOPHEN INJECTION 100 ML ONE (02:15)
[2024-06-06] MEDS: ACETAMINOPHEN 1000 MG/100 ML BAG IVPB ONE (02:18)
[2024-06-06] MEDS ORDERED: KETOROLAC TROMETHAMINE 15 MG/ML VIAL ONE (04:25)
[2024-06-06] MEDS: KETOROLAC TROMETHAMINE 15 MG/ML VIAL IVPUSH ONE (04:32)
[2024-06-06 04:36] VITALS: BP 116/60; PULSE 81; RESP 17
== END 2024-06-06 04:36 | disposition home or self-care (01) ==
LOC: JER 22:13
PROC: 3E033NZ Introduction of Analgesics, Hypnotics, Sedatives into Peripheral Vein, Percutaneous Approach (ICD-10-PCS; principal; 2024-06-06)
PROC: 3E033NZ Introduction of Analgesics, Hypnotics, Sedatives into Peripheral Vein, Percutaneous Approach (ICD-10-PCS; 2024-06-06)
PROC: 3E0333Z Introduction of Anti-inflammatory into Peripheral Vein, Percutaneous Approach (ICD-10-PCS; 2024-06-06)
DX: S86.911A Strain of unspecified muscle(s) and tendon(s) at lower leg level, right leg, initial encounter (principal); D57.00 Hb-SS disease with crisis, unspecified; X50.1XXA Overexertion from prolonged static or awkward postures, initial encounter
CPT/HCPCS: 36415; 73562-TC-RT-FY; 80053; 83615; 85025; 85045; 96374; 96375; 99284-25; J0131